=== PATIENT | female | born 1955 | race Caucasian/White ===

== ENCOUNTER 2018-05-01 11:48 | Emergency (ER) | payer SELFPAY ==
--- NOTE | 2018-05-01 15:17 | RAD REPORT ---
EXAM DESCRIPTION: RAD - Tib Fib Left - 05/01/2018 2:50 pm CLINICAL HISTORY: fall, leg pain COMPARISON: No comparisons FINDINGS: No evidence of fracture or dislocation.
--- NOTE | 2018-05-01 15:19 | RAD REPORT ---
EXAM DESCRIPTION: RAD - Knee Left 3 View - 05/01/2018 2:50 pm CLINICAL HISTORY: pain post-fall COMPARISON: No comparisons FINDINGS: No acute fracture or dislocation is seen. A small suprapatellar joint effusion is present.
--- NOTE | 2018-05-01 15:36 | EDPHYS ---
Physician Documentation [facility] Name: Shantal Real Age: 63 yrs Sex: Female : 1955 Arrival Date: 05/01/2018 Time: 11:51 Bed 10 Private MD: ED Physician Jag Bautista Historical: - Allergies: 05/01 12:25 No Known Allergies; aa5 - Home Meds: 12:25 None [Active]; aa5 - PMHx: 12:25 None; aa5 - PSHx: 12:25 Tubal ligation; aa5 - Immunization history:: Flu vaccine is up to date. - Social history:: Smoking status: Patient uses tobacco products, smokes one pack cigarettes per day. - Ebola Screening: : No symptoms or risks identified at this time. Vital Signs: 12:25 BP 165 / 72; Pulse 98; Resp 16 S; Temp 98.2(TE); Pulse Ox 97% on R/A; Weight 47.63 kg aa5 (R); Height 4 ft. 11 in. (149.86 cm) (R); Pain 8/10; 12:25 Body Mass Index 21.21 (47.63 kg, 149.86 cm) aa5 MDM: 14:16 Patient medically screened. [facility] 15:35 Data reviewed: vital signs, nurses notes. Counseling: I had a detailed discussion with ange the patient and/or guardian regarding: the historical points, exam findings, and any diagnostic results supporting the discharge/admit diagnosis, radiology results, the need for outpatient follow up, to return to the emergency department if symptoms worsen or persist or if there are any questions or concerns that arise at home. 05/01 12:26 Order name: Knee Left 3 View XRAY; Complete Time: 15:27 aa5 05/01 14:16 Order name: Tib Fib Left XRAY; Complete Time: 15:27 [facility] 05/01 15:28 Order name: Knee Immobilizer; Complete Time: 16:09 [facility] 05/01 15:47 Order name: Crutches; Complete Time: 16:09 [facility] Administered Medications: No medications were administered Disposition: 16:45 Co-signature as Attending Physician, Jag Bautista MD. rn Disposition: 05/01/18 15:36 Discharged to Home. Impression: Internal derangement of knee. - Condition is Stable. - Discharge Instructions: Knee Pain. - Prescriptions for Ultracet 37.5- 325 mg Oral Tablet - take 1 tablet by ORAL route every 6 hours - for up to 5 days; do not exceed 8 tablets per day.; 12 tablet. - Work release form, Medication Reconciliation Form, Thank You Letter, Antibiotic Education, Prescription Opioid Use form. - Follow up: Chandu Otoole MD; When: 2 - 3 days; Reason: Recheck today's complaints, Continuance of care, Re-evaluation by your physician. Addendum: 05/10/2018 20:25 Addendum: This is a 63 year old female with no chronic medical conditions that presents j mm to the ED with complaints of pain to her left knee after tripping. Patient denies other injury. ROS: Positive for extremity injury/pain otherwise negative. PE. Gen: NAD, Cardio: RRR, Resp: Non labored respirations, extremities: Left posterior and anterior knee ttp, full dorsalis pedis pulse, full ROM appreciated, compartments are soft, NVI. Neuro: Motor function normal. HEENT: Non traumatic, NECK: ROM normal. MDM. Negative xray. Injury appears more likely soft tissue, patient is given f/u with ortho and otheriwse given strict return precautions. patient understood and agrees with the plan of care. Diagnosis: Internal Derangement of the Left Knee.. Signatures: Dispatcher [employer] Saida Gustafson, RN RN dm5 Rfay Lockwood PA PA jmm Nieto, Roman, MD MD rn Calderon, Audri RN RN aa5 Corrections: (The following items were deleted from the chart) 05/01 16:11 15:36 05/01/2018 15:36 Discharged to Home. Impression: Internal derangement of knee. dm5 Condition is Stable. Forms are Medication Reconciliation Form, Thank You Letter, Antibiotic Education, Prescription Opioid Use. Follow up: Chandu Otoole; When: 2 - 3 days; Reason: Recheck today's complaints, Continuance of care, Re-evaluation by your physician. ange
--- NOTE | 2018-05-01 15:36 | ER ---
Nurse's Notes [facility] Name: Shantal Real Age: 63 yrs Sex: Female : 1955 Arrival Date: 05/01/2018 Time: 11:51 Bed 10 Private MD: Diagnosis: Internal derangement of knee Presentation: 05/01 12:24 Presenting complaint: Patient states: "I was at work and I tripped with a rug and fell aa5 to my knees". Pt c/o pain to left knee. Transition of care: patient was not received from another setting of care. Onset of symptoms was April 2018. Risk Assessment: Do you want to hurt yourself or someone else? Patient reports no desire to harm self or others. Initial Sepsis Screen: Does the patient meet any 2 criteria? No. Patient's initial sepsis screen is negative. Does the patient have a suspected source of infection? No. Patient's initial sepsis screen is negative. Care prior to arrival: None. 12:24 Method Of Arrival: Ambulatory aa5 12:24 Acuity: ELIZA 4 aa5 Historical: - Allergies: 12:25 No Known Allergies; aa5 - Home Meds: 12:25 None [Active]; aa5 - PMHx: 12:25 None; aa5 - PSHx: 12:25 Tubal ligation; aa5 - Immunization history:: Flu vaccine is up to date. - Social history:: Smoking status: Patient uses tobacco products, smokes one pack cigarettes per day. - Ebola Screening: : No symptoms or risks identified at this time. Screenin:00 Abuse screen: Denies threats or abuse. Nutritional screening: No deficits noted. aa5 Tuberculosis screening: No symptoms or risk factors identified. Fall Risk None identified. Assessment: 14:00 General: Appears comfortable, Behavior is calm, cooperative. Pain: Complains of pain in aa5 left knee. Neuro: Level of Consciousness is awake, alert, obeys commands, Oriented to person, place, time, situation. Cardiovascular: Patient's skin is warm and dry. Respiratory: Airway is patent Respiratory effort is even, unlabored, Respiratory pattern is regular, symmetrical. GI: No signs and/or symptoms were reported involving the gastrointestinal system. : No signs and/or symptoms were reported regarding the genitourinary system. EENT: No signs and/or symptoms were reported regarding the EENT system. Derm: Skin is pink, warm \\T\\ dry. Musculoskeletal: Reports pain in left knee. 16:10 Reassessment: Patient is alert, oriented x 3, equal unlabored respirations, skin aa5 warm/dry/pink. Knee immobilizer applied to left knee and crutches given to pt. . Vital Signs: 12:25 BP 165 / 72; Pulse 98; Resp 16 S; Temp 98.2(TE); Pulse Ox 97% on R/A; Weight 47.63 kg aa5 (R); Height 4 ft. 11 in. (149.86 cm) (R); Pain 8/10; 12:25 Body Mass Index 21.21 (47.63 kg, 149.86 cm) aa5 ED Course: 11:51 Patient arrived in ED. rg4 12:25 Triage completed. aa5 12:25 Arm band placed on. aa5 12:25 Patient has correct armband on for positive identification. aa5 14:00 Rebecca Bhat, GURWINDER is Primary Nurse. aa5 14:00 Rafy Lockwood PA is PHCP. [facility] 14:00 Jag Bautista MD is Attending Physician. m 14:19 Warm blanket given. Pillow given. Patient remains in wheelchair. Ice pack to injury. jp3 14:41 X-ray completed. Portable x-ray completed in exam room. Patient tolerated procedure la2 well. 14:50 Knee Left 3 View XRAY In Process Unspecified. EDMS 14:51 Tib Fib Left XRAY In Process Unspecified. EDMS 15:36 Chandu Otoole MD is Referral Physician. [facility] 16:11 No provider procedures requiring assistance completed. Patient did not have IV access aa5 during this emergency room visit. Administered Medications: No medications were administered Outcome: 15:36 Discharge ordered by . [facility] 16:10 Discharged to home via wheelchair, with family. aa5 16:10 Condition: stable 16:10 Discharge instructions given to patient, Instructed on discharge instructions, follow up and referral plans. medication usage, Demonstrated understanding of instructions, follow-up care, medications, Prescriptions given X 1. 16:11 Patient left the ED. dm5 Signatures: Dispatcher [employer] EDDE Saida Barnett, GURWINDER RN dm5 MickaRafy hernández PA PA jmm Calderon, Audri, RN RN aa5 Marissa Floyd RN RN tw2 Mari Osuna4 Ambar Fuentes2 Kevin Mora jp3 Corrections: (The following items were deleted from the chart) 19:49 14:48 Reassessment: pt assisted onto bedpan at this time, pt urinated out of bedpan aa5 onto personal gown, pt cleaned, placed in new gown, lorraine is not completely under pt at this time but pt states "its fine, im not wet now" tw2
== END 2018-05-01 16:11 | disposition home or self-care (01) ==
LOC: ER 11:48
DX: M23.92 Unspecified internal derangement of left knee (principal); F17.210 Nicotine dependence, cigarettes, uncomplicated
CPT/HCPCS: 99283

== ENCOUNTER 2022-09-22 07:53 | Day surgery (SDC) | payer OTHER ==
[2022-09-22 08:19] VITALS: BMI 21.1
[2022-09-22] MEDS ORDERED: ALBUMIN HUMAN 25% 300 ML IV ONE (10:30)
[2022-09-22 12:33] VITALS: BP 134/76; TEMP 98.6; O2SAT 92
--- NOTE | 2022-09-22 12:50 | RAD REPORT ---
EXAM DESCRIPTION: US - Paracentesis Proc Guidance - 09/22/2022 9:36 am CLINICAL HISTORY: ASCITES Ascites COMPARISON: No comparisons FINDINGS: Informed consent was obtained and time-out was performed. Patient's abdomen was prepped and draped in the usual sterile fashion. 1% lidocaine was used for loca l anesthetic purposes. A small skin incision was made. A paracentesis catheter was guided into the peroneal cavity under son ographic guidance. A small amount of fluid was sent for requested lab studies. A large volume paracentesis was performed , with a total of 3.8 liters drained. The patient tolerated the procedure well. Patient was administered IV albumin per protocol following the procedure. IMPRESSION: Successful ultrasound-guided paracentesis.
[2022-09-22 13:38] LABS: Appearance CLEAR (CLEAR); Body Fluid Source PERITONEAL; Body Fluid WBC 129 /mm^3; Color of fluid Yellow (COLORLESS)
[2022-09-24 20:13] LABS: TOTAL PROTEIN,PERITONEAL FLUID <3.0 g/dL
== END 2022-09-22 11:30 | disposition home or self-care (01) ==
LOC: DS 07:53
PROVIDERS: ATTEND Internal Medicine Gastroenterology
DX: R18.8 Other ascites (principal); K74.69 Other cirrhosis of liver
CPT/HCPCS: 87070; 36415; 82150; 89050; 84157; 82042; 96365; 49083; P9047

== ENCOUNTER 2022-09-30 23:10 | Observation (INO) | payer OTHER ==
--- OUTSIDE RECORDS SUMMARY | 2022-09-30 23:15 | XMS REPORT | Continuity of Care Document ---
:1955 Author Organization [facility] t Address [address] [place] [address] [place] [id number] Care Team Providers Name Role Phone Sam Proctor Primary Care Physician Sam Proctor Attending Clinician Unavailable Nixon Lorenzo Attending Clinician Unavailable Elizabeth Nielsen RN Attending Clinician Unavailable Sam Proctor Attending Clinician Any Hoover RN Attending Clinician Unavailable AVERY NARAYANAN Attending Clinician Unavailable Robel Perez DO Attending Clinician Marcus Guaman MD Attending Clinician Avery Narayanan MD Attending Clinician Gustavo Proctor Admitting Clinician Unavailable AVERY NARAYANAN Admitting Clinician Unavailable vAery Narayanan MD Admitting Clinician Payers Payer Name Policy Type Policy Number Effective Date Expiration Date S ource Problems Condition Condition Condition Status Onset Resolution Last Treating Co mments Source Name Details Category Date Date Treatment Clinician Date Paresthesi Paresthesi Disease Active U nivers as as 4-12 ity of 00:00: [place] 00 Medical Branch Allergies, Adverse Reactions, Alerts Allergy Allergy Status Severity Reaction(s) Onset Inactive Treating Comm ents Source Name Type Date Date Clinician No Known DA Active U [facility] Allergie 8-11 Clear s 00:00: Puentes 00 [facility] NO KNOWN Drug Active Univers ALLERGIE Class ity of S [place] [facility] Social History Social Habit Start Date Stop Date Quantity Comments Source History SDOH Social Unive rsity of Connections Get [place] Med ical Together Branch History SDOH Social Unive rsity of Connections Druze [place] [facility] History SDOH Social Unive rsity of Connections [place] [facility] Membership Branch History SDOH Social Unive rsity of Connections [place] [facility] Meetings Branch History of tobacco Cigarette Smoker University of use [facility] Branch Exposure to 2022-05-18 2022-05-28 Not sure University of SARS-CoV-2 (event) 00:00:00 09:16:00 [place] [facility] History SDOH 2022-05-28 2022-05-28 3 University o f Alcohol Frequency 00:00:00 00:00:00 [place] M edical Branch History SDOH 2022-05-28 2022-05-28 2 University o f Alcohol Std Drinks 00:00:00 00:00:00 [place] [facility] History SDOH 2022-05-28 2022-05-28 1 University o f Alcohol Binge 00:00:00 00:00:00 [place] Medic al Branch History SDOH Social 2022-05-28 2022-05-28 5 Unive rsity of Connections Phone 00:00:00 00:00:00 [place] M edical Branch History SDOH Social 2022-05-28 2022-05-28 4 Unive rsity of Connections Living 00:00:00 00:00:00 [place] [facility] History SDOH 2022-05-28 2022-05-28 0 University o f Physical Activity 00:00:00 00:00:00 [place] M edical DPW Branch History SDOH 2022-05-28 2022-05-28 0 University o f Physical Activity 00:00:00 00:00:00 [place] M edical MPS Branch History SDOH 2022-05-28 2022-05-28 5 University o f Financial 00:00:00 00:00:00 [place] [facility] History SDOH Food 2022-05-28 2022-05-28 1 Univers ity of Worry 00:00:00 00:00:00 [place] [facility] History SDOH Food 2022-05-28 2022-05-28 1 Univers ity of Scarcity 00:00:00 00:00:00 [place] [facility] History SDOH 2022-05-28 2022-05-28 2 University o f Transport Med 00:00:00 00:00:00 [place] Medic al Branch History SDSC 2022-05-28 2022-05-28 2 University o f Transport Non-Med 00:00:00 00:00:00 [place] M edical Branch History SDOH 2022-05-28 2022-05-28 2 University o f Housing Unable to 00:00:00 00:00:00 [place] M edical Pay Branch History [facility] 2022-05-28 2022-05-28 1 University o f Housing Places 00:00:00 00:00:00 [place] Medi shireen Lived Branch History [facility] 2022-05-28 2022-05-28 2 University o f Housing Homeless 00:00:00 00:00:00 [place] Me dical Last Year Branch Tobacco use and 2022-05-28 2022-05-28 Smokeless Universit y of exposure 00:00:00 00:00:00 tobacco non-user [place] Me dical Branch Sex [birth year] GRU[place] Molina 00:00:00 00:00:00 [facility] Smoking Status Start Date Stop Date Source Smokes tobacco daily 2022-05-28 00:00:00 Univers ity of [place] [facility] Medications Ordered Filled Start Stop Current Ordering Indication Dosage Frequency Signature Comments Components Source Medication Medication Date Date Medication? Clinician (SIG) Name Name Methylpredn 2022- No 4mg [Order 1 U lucilleers isolone 05-30 Start] ity of (MEDROL) 21:35: 21:44 Name: [place] tablet 4 mg 52 :00 Methylpred Me dical nisolone Branch (MEDROL) tablet 4 mg Signed Summary: 4 mg, Oral, Q6H TAPER, 4 doses, First dose on Thu05/30/22 at 1645, Last dose on Thu05/31/22 at 1045, Routine [Order 1 End] [Order 2 Start] Name: Methylpred nisolone (MEDROL) tablet 4 mg Signed Summary: 4 mg, Oral, Q8H TAPER, 3 doses, First dose on 05/31/22 at 1845, Last dose on 06/01/22 at 1045, Routine [Order 2 End] methylPREDN 2023-0 Yes [id number] Take by Univers ISolone 4 4-14 mouth ity of mg tablets 00:00: [place]STRU [place] CTIONS. Medical follow Branch package directions methylPREDN 2023-0 Yes [id number] Take by Univers ISolone 4 4-14 mouth ity of mg tablets 00:00: [place]INSTRU [place] 00 CTIONS. Medical follow Branch package directions methylPREDN 2023-0 Yes [id number] Take by Univers ISolone 4 4-14 mouth ity of mg tablets 00:00: [place]-INSTRU [place] 00 CTIONS. Medical follow Branch package directions methylPREDN 2023-0 Yes [id number] Take by Univers ISolone 4 4-14 mouth ity of mg tablets 00:00: [place]-INSTRU [place] 00 CTIONS. Medical follow Branch package directions methylPREDN 2023-0 Yes [id number] Take by Univers ISolone 4 4-14 mouth ity of mg tablets 00:00: [place]-INSTRU [place] 00 CTIONS. Medical follow Branch package directions methylPREDN 2023-0 Yes [id number] Take by Univers ISolone 4 4-14 mouth ity of mg tablets 00:00: [place]-INSTRU [place] 00 CTIONS. Medical follow Branch package directions methylPREDN 2023-0 Yes [id number] Take by Univers ISolone 4 4-14 mouth ity of mg tablets 00:00: [place]-INSTRU [place] 00 CTIONS. Medical follow Branch package directions gabapentin 2023-0 2023- No [id number] 100mg Take 1 Univers 100 mg 4-14 05-15 capsule by ity of capsule 00:00: 04:59 mouth in [place] 00 :00 the Medical morning Branch and 1 capsule at noon and 1 capsule in the evening. Do all this for 30 days. gabapentin 2023-0 2023- No [id number] 100mg Take 1 Univers 100 mg 4-14 05-15 capsule by ity of capsule 00:00: 04:59 mouth in [place] 00 :00 the Medical morning Branch and 1 capsule at noon and 1 capsule in the evening. Do all this for 30 days. gabapentin 2022-0 2022- No [id number] 100mg Take 1 Univers 100 mg 05-30-15 capsule by ity of capsule 00:00: 04:59 mouth in [place] 00 :00 the and 1 capsule at noon and 1 capsule in the evening. Do all this for 30 days. gadobenate 0 2022- No [id number] .2mL/kg 8.62 mL Univers dimeglumine 05-2913 (0.2 mL/kg i ty of (MULTIHANCE 16:00: 16:00 ?43.1 kg), [place] -10 mL) 00 :00 Intravenou Medica l injection s, ONCE, 1 Bran ch 8.62 mL dose, On Thu05/29/22 at 1100, Routine gabapentin Yes 100mg 100 mg, Uni vers (NEURONTIN) 05-29 Oral, TID, it y of capsule 100 01:00: First dose [place] mg 00 on Thu05/28/22 at Branch 2000, Until Discontinu ed, Routine enoxaparin 0 Yes 40mg 40 mg, Unive rs (LOVENOX) 05-28 Subcutaneo ity of injection 22:00: [place]ILY, [place] 40 mg 00 First dose Medical on Thu05/28/22 at 1700, Until Discontinu ed, Routine sennosides- 0 Yes 1{tbl} 1 tablet, Univers docusate 12 Oral, ity of sodium 21:29: QDAILYPRNDee (SENOKOT-S) 51 Starting Medi shireen 8.6-50 mg on Thu per tablet 05/28/22 at 1 tablet 1629, Until Discontinu ed, Routine, Constipati on guaiFENesin 0 Yes 200mg 200 mg, Un lotus (FENESIN 4-12 Oral, ity of IR) tablet 21:29: Q4HPRN, [place] 200 mg 51 Starting Medical on Thu05/28/22 at 1629, Until Discontinu ed, Routine, Cough ondansetron 0 Yes 4mg 4 mg, Slow Univers (ZOFRAN 4-12 IV Push, ity of (PF)) 21:29: Q6HPRN, [place] injection 4 51 Starting Medi shireen mg on Thu Branch 05/28/22 at 1629, Until Discontinu ed, Routine, Nausea and Vomiting (N/V) HYDROcodone 2022- No 1{tbl} 1 tablet, Univers -acetaminop 05-28 Oral, ity of hen (NORCO 21:29: 21:28 Q6HPRN, [place] as 5) 5-325 mg 51 :51 Starting Medi shireen tablet 1 on Thu Branch tablet 05/28/22 at 1629, Until Thu05/30/22 at 1628, Routine, Pain (scale 4-6) acetaminoph Yes 650mg 650 mg, Un lotus en 05-28 Oral, ity of (TYLENOL) 21:29: Q6HPRN, [place] tablet 650 50 Starting Medic al mg on Thu Branch 05/28/22 at 1629, Until Discontinu ed, Routine, Pain (scale 1-3) methylpredn 2022- No 125mg 125 mg, U nivers isolone sod 05-28 Intravenou i ty of succ 17:00: 21:36 s, Q6H, [place] (SOLU-MEDRO 00 :57 First dose Me dical L) on Thu Branch injection 05/28/22 at 125 mg 1200, Until Discontinu ed, Routine NaCl 0.9% No 500mL at 999 Univ ers (NS) bolus 05-28 mL/hr, 500 it y of infusion 14:30: 17:30 mL, IV [place] 500 mL 00 :00 Infusion, Medical ONCE, 1 Branch dose, On Thu05/28/22 at 0930, STAT Vital Signs Vital Name Observation Time Observation Value Comments Source Systolic blood 2022-05-30 16:32:00 132 mm[Hg] Univer sity of pressure [facility] Diastolic blood 2022-05-30 16:32:00 72 mm[Hg] Unive rsity of [facility] Heart rate 2022-05-30 16:32:00 82 /min Universi ty [facility] Body temperature 2022-05-30 16:32:00 36.44 Rocio Univ ersity [facility] Respiratory rate 2022-05-30 16:32:00 18 /min [facility] Oxygen saturation in 2022-05-30 16:32:00 95 /min [facility] Arterial blood by [facility] Pulse oximetry Branch Body weight 2022-05-30 08:43:[address] [facility] BMI 2022-05-30 08:43:00 20.92 kg/m2 [facility] Body height 2022-05-28 14:00:[address] [facility] Procedures Procedure Date / Time Performing Clinician Source Performed PHOSPHORUS 2022-05-30 09:01:00 Rowena [facility] MAGNESIUM 2022-05-30 09:01:00 [facility]OLIC PANEL 2022-05-30 09:01:00 Rowena [facility] (NA, K, CL, CO2, GLUCOSE, Medica l Branch BUN, CREATININE, CA) CBC WITH DIFF 2022-05-30 09:01:00 Rowena [facility] MR LUMBAR SPINE W WO 2022-05-29 16:13:00 Rowena [facility] CONTRAST [facility] MR CERVICAL SPINE W WO 2022-05-29 16:12:00 [facility] CT HEAD WO CONTRAST 2022-05-29 16:05:00 Avery Narayanan [facility] PHOSPHORUS 2022-05-29 08:18:00 Rowena [facility] MAGNESIUM 2022-05-29 08:18:00 [facility] 2022-05-29 08:18:00 [facility] BASIC METABOLIC PANEL 2022-05-29 08:18:00 Rowena [facility] (NA, K, CL, CO2, GLUCOSE, Medica l Branch BUN, CREATININE, CA) LIPID PANEL (26327)(TOTAL 2022-05-29 08:18:00 Marcus Guaman [facility] CHOLESTEROL, Medical Branch TRIGLYCERIDES, HDL) CBC WITH DIFF 2022-05-29 08:18:00 Rowena [facility] GLYCOSYLATED HEMOGLOBIN 2022-05-29 08:18:00 [facility] PHOSPHORUS 2022-05-29 01:01:00 [facility] MAGNESIUM 2022-05-29 01:01:00 Rowena [facility] FOLATE 2022-05-29 01:01:00 [facility] BASIC METABOLIC PANEL 2022-05-29 01:01:00 [facility] (NA, K, CL, CO2, GLUCOSE, Medica l Branch BUN, CREATININE, CA) URINALYSIS 2022-05-28 23:48:00 [facility] QFT TB2 MINUS NIL 2022-05-28 22:28:00 Singer [facility] SEDIMENTATION RATE 2022-05-28 22:28:00 Rowena [facility] CBC WITH DIFF 2022-05-28 22:28:00 [facility]IFERON-TB ASSAY 2022-05-28 22:28:00 Robel Perez [facility] CT THORAX WO CONTRAST 2022-05-28 22:13:50 [facility] V[facility] B12, LEVEL 2022-05-28 22:01:00 Rowena [facility] RHEUMATOID FACTOR 2022-05-28 22:01:00 [facility] C-REACTIVE PROTEIN 2022-05-28 22:01:00 [facility] FREE T4 2022-05-28 22:01:00 [facility] THYROID STIMULATING 2022-05-28 22:01:00 Rowena [facility] HORMONE [facility] ANTI-NUCLEAR ANTIBODY 2022-05-28 22:01:00 [facility] Branch ANTI-NUCLEAR ANTIBODY 2022-05-28 22:01:00 Rowena Marcus [facility] TITER Medical Branch VITAMIN D, 25-OH 2022-05-28 22:01:00 Rowena Marcus [facility] LAB ONLY COVID 2022-05-28 17:50:00 Singer [facility] INTERPRETATION [facility] Branch COVID-19 (ID NOW RAPID 2022-05-28 17:50:00 Singer [facility] TESTING) Medical Branch URINALYSIS 2022-05-28 15:48:00 Singer [facility] XR CHEST 1 VW 2022-05-28 15:04:15 Singer [facility] COMP. METABOLIC PANEL 2022-05-28 14:44:00 Singer [facility] ([id number]) Medical Branch CBC WITH DIFF 2022-05-28 14:44:00 Singer [facility] N-TERMINAL PRO-BNP 2022-05-28 14:44:00 Singer [facility] HOSPITAL ADMISSION 2022-05-28 05:01:00 Doctor Unassigned, [facility] Plan of Care Planned Activity Planned Date Details Comments Source Future Scheduled 2022-10-17 Influenza Vaccine (#1) [facility] 00:00:00 [code = Influenza Medical Ce nter Vaccine (#1)] Future Scheduled 2022-10-17 Influenza Vaccine (#1) [facility] 00:00:00 [code = Influenza Medical Ce nter Vaccine (#1)] Future Scheduled 2022-02-[address] [facility] 00:00:00 (12+) [code = Medical Center DEPRESSION SCREENING (12+)] Future Scheduled 2022-02-16 FALLS RISK SCREENING [facility] 00:00:00 [code = FALLS RISK Medical C enter SCREENING] Future Scheduled 2022-02-[address] [facility] 00:00:00 (12+) [code = Medical Center DEPRESSION SCREENING (12+)] Future Scheduled 2022-02-16 FALLS RISK SCREENING [facility] 00:00:00 [code = FALLS RISK Medical C enter SCREENING] Future Scheduled 2020-01-[address] [facility] 00:00:00 WELLNESS (YEAR 2 or Medical Center FIRST YEAR if no IPPE) [code = MEDICARE ANNUAL WELLNESS (YEAR 2 or FIRST YEAR if no IPPE)] Future Scheduled 2020-01-[address] [facility] 00:00:00 WELLNESS (YEAR 2 or Medical Center FIRST YEAR if no IPPE) [code = MEDICARE ANNUAL WELLNESS (YEAR 2 or FIRST YEAR if no IPPE)] Future Scheduled 2019 PNEUMOCOCCAL 65+ YRS ([address] [facility] 00:00:00 - PCV) [code = Medical Cente r PNEUMOCOCCAL 65+ YRS (1 - PCV)] Future Scheduled 2019 PNEUMOCOCCAL 65+ YRS ([address] [facility] 00:00:00 - PCV) [code = Medical Cente r PNEUMOCOCCAL 65+ YRS (1 - PCV)] Future Scheduled 2004-02-13 SHINGLES VACCINES ([address] [facility] 00:00:00 2) [code = SHINGLES Medical Center VACCINES (1 of 2)] Future Scheduled 2004-02-13 SHINGLES VACCINES ([address] [facility] 00:00:00 2) [code = SHINGLES Medical Center VACCINES (1 of 2)] Future Scheduled 1973 DTAP/TDAP/TD VACCINES [facility] 00:00:00 (1 - Tdap) [code = Medical C enter DTAP/TDAP/TD VACCINES (1 - Tdap)] Future Scheduled 1973 DTAP/TDAP/TD VACCINES [facility] 00:00:00 (1 - Tdap) [code = Medical C enter DTAP/TDAP/TD VACCINES (1 - Tdap)] Future Scheduled 1972-02-13 HEPATITIS C SCREENING [facility] 00:00:00 [code = HEPATITIS C Medical Center SCREENING] Future Scheduled 1972-02-13 HEPATITIS C SCREENING [facility] 00:00:00 [code = HEPATITIS C Medical Center SCREENING] Future Scheduled [address] [facility] 00:00:00 Counseling and Medical Cente r Screening (12+) [code = Tobacco Cessation Counseling and Screening (12+)] Future Scheduled [address] [facility] 00:00:00 Counseling and Medical [facility] Screening (12+) [code = Tobacco Cessation Counseling and Screening (12+)] Future Scheduled 1955 COVID-19 VACCINE (#1) [facility] 00:00:00 [code = COVID-[address] VACCINE (#1)] Future Scheduled 1955 COVID-19 VACCINE (#1) [facility] 00:00:00 [code = COVID-[address] VACCINE (#1)] Future Scheduled 1954 Screening for malignant [facility] 00:00:00 neoplasm of colon Medical Ce nter (procedure) [code = 809115310] Future Scheduled 1954 Screening for malignant [facility] 00:00:00 neoplasm of colon Medical Ce nter (procedure) [code = 334741485] Future Scheduled 1955 Sigmoidoscopy [code = [facility]:00 Sigmoidoscopy] [facility] Future Scheduled 1954 Screening for malignant [facility] 00:00:00 neoplasm of breast Medical C enter (procedure) [code = 423815493] Future Scheduled 1955 Sigmoidoscopy [code = [facility] 00:00:00 Sigmoidoscopy] [facility] Future Scheduled 1954 CT Colonography (combo) [facility] 00:00:00 [code = CT Colonography [facility] (combo)] Future Scheduled 1954 Screening for malignant [facility] 00:00:00 neoplasm of colon Medical Ce nter (procedure) [code = 946335290] Future Scheduled 1954 Screening for malignant [facility] Test 00:00:00 neoplasm of colon Medical Ce nter (procedure) [code = 064028814] Future Scheduled 1955 DXA SCAN [code = DXA [facility] 00:00:00 SCAN] [facility] Future Scheduled 1954 Screening for malignant [facility] Test 00:00:00 neoplasm of colon Medical Ce nter (procedure) [code = 594538076] Future Scheduled 1954 Screening for malignant [facility] Test 00:00:00 neoplasm of breast Medical C enter (procedure) [code = 541272946] Future Scheduled 1954 CT Colonography (combo) [facility] Test 00:00:00 [code = CT Colonography [facility] (combo)] Future Scheduled 1954 Screening for malignant [facility] Test 00:00:00 neoplasm of colon Medical Ce nter (procedure) [code = 573155837] Future Scheduled 1954 Screening for malignant [facility] Test 00:00:00 neoplasm of colon Medical Ce nter (procedure) [code = 442474434] Future Scheduled 1954 DXA SCAN [code = DXA [facility] Test 00:00:00 SCAN] [facility] Future Scheduled 1954 Screening for malignant [facility] Test 00:00:00 neoplasm of colon Medical Ce nter (procedure) [code = 063085353] Encounters Start End Encounter Admission Attending Care Care Encounter Source Date/Time Date/Time Type Type Clinicians Facility Department ID 2022-07-17 Outpatient Proctor, [facility] [id number] Common 16:18:00 Sam [id number] [facility] 2022-06-05 Outpatient Proctor, STLMLC [facility] [id number] Common 10:23:03 Sam [id number] [facility] 2022-06-03 Outpatient Proctor, STLMLC [facility] [id number] Common 14:46:03 Sam [id number] [facility] 2022-09-30 2022-09-30 [id number] [facility] 05:34:00 05:34:00 Nixon 62 [facility] 2022-09-26 2022-09-26 [id number] [facility] 2022-09-26 2022-09-26 Documenttanvi Nielsen [facility] [id number] 00:[facility]00 00:00:00 cali Johnson [facility] 2022-07-10 2022-07-10 Telephone Proctor, UNIVERSIT [id number] Univers 00:00:00 00:00:00 [facility] Y HEALTH [id number] ity of CLINICS 4[place]2.[place] [id number] [address] Branch 2022-07-07 2022-07-07 Letter [facility] [id number] Univers 00:00:00 00:00:00 (Out) [facility] Y HEALTH [id number] ity of [place] [id number] [address] 2022-07-02 2022-07-02 Letter [facility] [id number] Univers 00:00:00 00:00:00 (Out) Sam M Y HEALTH [id number] ity of [place]2.[place] [id number] [address] 2022-06-25 2022-06-25 Letter [facility] [id number] Univers 00:00:00 00:00:00 (Out) [facility] HEALTH [id number] ity of [place] 4[place]2.[place] [id number] [address] 2022-06-02 2022-06-02 Transition ALBA Hoover [id number] Univers 00:00:00 00:00:00 of Care Any REYESY 350.1.13.10 it y of [place]2.[place].2.[place] [id number] [place] [address] Branch 2022-05-28 2022-05-30 [facility] [id number] Univers 09:01:00 17:30:00 AVERY lomeli [facility] 2022-05-28 2022-05-30 Inpatient U ORACIONEW [facility] [id number] Univers 09:01:00 17:30:00 AVERY lomeli [facility] 2022-05-28 2022-05-30 [facility] Robel Perez [facility] [id number] Univers 09:01:00 17:30:00 Encounter Marcus Guaman [id number] ity of OracioKellenovidiodrakeanthony ARNALDO 4.2.7.2.686 [place] [id number] ([facility]) Results Test Description Test Time Test Comments Results Result Comments Source - XR CHEST 2 V 2022-09-27 00:00:00 [facility] 1955 Sex: F FAX: Gustavo Cummins MD [phone] [place]: St: PRE FAX: Nixon Garcia MD [phone] Name: HUMBERTO,ASIF [facility] : 1955 Age/S: 67/F [address] [place] [address] Unit #: [id number] Loc: H[place] [address] Phys: Nixon Lorenzo MD Acct: [id number] Dis Date: Status: PRE [facility] PHONE #: [phone] Exam Date: 09/26/2022 173 FAX #: [phone] Reason: PREOP EXAMS: CPT CODE: [id number] XR CHEST 2 V [id number] PROCEDURE INFORMATION: Exam: XR Chest Exam date and time: 09/26/2022 4:57 PM Age: 67 years old Clinical indication: Pre-operative exam; Cardiovascular screening and respiratory screening exam; Additional info: Preop TECHNIQUE: Imaging protocol: Radiologic exam of the chest. Views: 2 views. PA and Lateral COMPARISON: No relevant prior studies available. FINDINGS: Lungs: There is mild biapical scarring. No confuent reticular opacities. No consolidation. Pleural spaces: No pleural effusion. No pneumothorax. Heart/Mediastinum: Within normal limits. Bones/joints: Unremarkable as visualized. IMPRESSION: No acute process. at 0718 Reported and signed by: Melvin Gupta D.O. CC: Gustavo Proctor MD; Nixon Lorenzo MD Technologist: RT Bethany(Jessica) Trnscrd Date/Time/By: 09/27/2022 (717) : By: AliceGGG Orig Print D/T: S: 09/27/2022 (717) PAGE 1 Signed Report CBC W/AUTO DIFF 2022-09-26 17:04:00 Test Item Value Reference Range Interpretation Comme nts WHITE BLOOD CELL (test code = WBC) 10.8 x10 3/uL 4.5-11.0 N RED BLOOD CELL (test code = RBC) 4.53 x10 6/uL 3.54-5.02 N HEMOGLOBIN (test code = HGB) 14.3 g/dL 11.0-15.0 N HEMATOCRIT (test code = HCT) 44.8 % 33.0-45.0 N MEAN CELL VOLUME (test code = MCV) 98.9 fL 81.0-99.0 N MEAN CELL HGB (test code = MCH) 31.6 pg 27.0-33.0 N MEAN CELL HGB CONCETRATION (test code = MCHC) 31.9 g/dL 33.0-37. 0 L RED CELL DISTRIBUTION WIDTH CV (test code = RDW) 14.3 % 11.5- 14.5 N RED CELL DISTRIBUTION WIDTH SD (test code = RDW-SD) 52.4 fL 37 .0-54.0 N PLATELET COUNT (test code = PLT) 177 x10 3/uL 150-400 N MEAN PLATELET VOLUME (test code = MPV) 10.6 fL 7.0-9.0 H NEUTROPHIL % (test code = NT%) 56.5 % 56.0-77.0 N IMMATURE GRANULOCYTE % (test code = IG%) 0.4 % 0.0-2.0 N LYMPHOCYTE % (test code = LY%) 25.5 % 14.0-32.0 N MONOCYTE % (test code = MO%) 12.3 % 4.8-9.0 H EOSINOPHIL % (test code = EO%) 4.3 % 0.3-3.7 H BASOPHIL % (test code = BA%) 1.0 % 0.0-2.0 N NUCLEATED RBC % (test code = NRBC%) 0.0 % 0-0 N NEUTROPHIL # (test code = NT#) 6.11 x10 3/uL 2.0-7.6 N IMMATURE GRANULOCYTE # (test code = IG#) 0.04 x10 3/uL 0.00-0.03 H LYMPHOCYTE # (test code = LY#) 2.75 x10 3/uL 1.0-3.8 N MONOCYTE # (test code = MO#) 1.33 x10 3/uL 0.1-0.8 H EOSINOPHIL # (test code = EO#) 0.46 x10 3/uL 0.0-0.2 H BASOPHIL # (test code = BA#) 0.11 x10 3/uL 0.0-0.2 N NUCLEATED RBC # (test code = NRBC#) 0.00 x10 3/uL 0.0-0.1 N MANUAL DIFF REQUIRED (test code = MDIFF) NO PROTHROMBIN [id number] 17:03:00 Test Item Value Reference Range Interpretation Comments PROTHROMBIN TIME 12.3 SECONDS 9.3-12.9 N PATIENT (test code = PTP) INTERNATIONAL NORMAL 1.1 0.8-1.2 N TARGET INR BY RATIO (test code = INDICATIO N Indication INR) INR1. Prophylax is of venous thrombos is 2.0 - 3.0 (orthoped ic surgery), Proph ylaxis of venous throm bosis (other than hig h-risk surgery), Treat ment of Deep Vein Thrombosis/Pulm onary Embolism, Preve ntion of systemic emb olism - Tissue heart va lves, Acute Myocardia l Infarction (to prevent systemic emboli sm), Valvular heart disease, Atrial Fibrillation, Bileaflet mecha nical valve in aortic position.2. Mec hanical prosthetic valv es (high risk), 2. 5 - 3.5 Presence of Teresa pus Anticoagulant o r Antiphospholipi d Antibodies, Pre vention of systemic emb olism - Acute Myocardia l Infarction (to prevent recurrent infar ct). BASIC METABOLIC [id number] 17:00:00 Test Item Value Reference Range Interpretation Comments SODIUM (test code = 141 mEq/L 134-147 N NA) POTASSIUM (test code 4.0 mEq/L 3.4-5.0 N = K) CHLORIDE (test code 104 mEq/L 100-108 N = CL) CARBON DIOXIDE (test 30 mEq/l 21-33 N code = CO2) ANION GAP (test code 11 0-20 N = GAP) GLUCOSE (test code = 75 mg/dL 70-110 N GLU) BLOOD UREA NITROGEN 14 mg/dL 7-18 N (test code = BUN) GLOMERULAR 94.2 80-90 H The Glomerular FILTRATION RATE Filtration R ate is a (test code = GFR) calculated parameterbased on serum Creatinine, pat ient age and sex. GFR va luesless than 60 mL/min/ 1.73 square meters a re indicative ofCh ronic Kidney Disease. Values less than 15 mL/min/1.73squa re meters indicate Kidney failure. The calculation forGFR is based on the CKD-EPI (2020) calculat ion. This formulais race indifferent and is the recommended for louisa for GFRby the [facility] on for Adults.The GFR will not calculate if th e sex is unknown or if thepatient's ag e is <18 years. CREATININE (test 0.7 mg/dL 0.6-1.3 N code = CREAT) CALCIUM (test code = 8.4 mg/dL 8.0-10.5 N CA) N-TERMINAL [id number] 15:33:43 Test Item Value Reference Range Interpretation Comments NT-proBNP (test code = 746 pg/mL <=125 H 4364525224) BRIAN (test code = BRIAN) Biotin has been reported to cause a negative bias, interpret results relative to patient's use of biotin. Lab Interpretation (test Abnormal code = 82115-8) [facility]. METABOLIC PANEL ([id number])2022-05-28 15:26:24 Test Item Value Reference Range Interpretation Comments NA (test code = 134 mmol/L 135-145 L 8869358211) K (test code = 4.7 mmol/L 3.5-5.0 3095045871) CL (test code = 104 mmol/L 98-108 4250658098) CO2 TOTAL (test code = 24 mmol/L 23-31 3037235381) AGAP (test code = 6 2-16 4944308899) BUN (test code = 11 mg/dL 7-23 0842226622) GLUCOSE (test code = 124 mg/dL 70-110 H 6546779315) CREATININE (test code = 0.49 mg/dL 0.50-1.04 L 3348752326) TOTAL BILI (test code = 1.5 mg/dL 0.1-1.1 H 8210676392) CALCIUM (test code = 8.2 mg/dL 8.6-10.6 L 0307418837) T PROTEIN (test code = 7.3 g/dL 6.3-8.2 1425724229) ALBUMIN (test code = 3.2 g/dL 3.5-5.0 L 0239333322) ALK PHOS (test code = 102 U/L 34-122 1752848019) ALTv (test code = 77 U/L 5-35 H 1742-6) AST(SGOT) (test code = 123 U/L 13-40 H 1592232836) eGFR (test code = 125.6 mL/min/1.73m2 5441699628) BRIAN (test code = BRIAN) Association of Glomerular Filtration Rate (GFR) and Staging of Kidney Disease* + --+ --+ ------+| GFR (mL/min/1.73 m2) ?| With Kidney Damage ?| ?Without Kidney Damage+ --------+ --------+ +| ?>90 ?| ?Stage one ?| ? Normal ?+ ---+ ---+ -------+| ?60-89 ?| ?Stage two ?| ? Decreased GFR ? + --+ --+ ------+| ?30-59 ?| ?Stage three ?| ? Stage three ? + --+ --+ ------+| ?15-29 ?| ?Stage four ? | ? Stage four ?+ ---+ ---+ -------+| ?<15 (or dialysis) ? ?| ?Stage five ? | ? Stage five ?+ ---+ ---+ -------+ *Each stage assumes the associated GFR level has been in effect for at least three months. ?Stages 1 to 5, with or without kidney disease, indicate chronic kidney disease. Notes: Determination of stages one and two (with eGFR >59mL/min/1.73 m2) requires estimation of kidney damage for at least three months as defined by structural or functional abnormalities of the kidney, manifested by either:Pathological abnormalities or Markers of kidney damage (including abnormalities in the composition of the blood or urine or abnormalities in imaging tests). Lab Interpretation Abnormal (test code = 27030-5) [facility] WITH [id number] 15:14:03 Test Item Value Reference Range Interpretation Comments WBC (test code = 11.30 See_Comment H [Automated 6690-2) message] The sy stem which generated this result transmitted reference range : 4.30 - 11.10 10*3/?L. The reference range was not used to interpret this result as normal/abnormal . RBC (test code = 4.59 See_Comment [Automated 709-8) message] The sy stem which generated this result transmitted reference range : 3.93 - 5.25 10*6/?L. The reference range was not used to interpret this result as normal/abnormal . HGB (test code = 14.7 g/dL 11.6-15.0 718-7) HCT (test code = 43.5 % 35.7-45.2 4544-3) MCV (test code = 94.8 fL 80.6-95.5 787-2) MCH (test code = 32.0 pg 25.9-32.8 785-6) MCHC (test code = 33.8 g/dL 31.6-35.1 786-4) RDW-SD (test code = 49.5 fL 39.0-49.9 45909-4) RDW-CV (test code = 14.4 % 12.0-15.5 788-0) PLT (test code = 157 See_Comment L [Automated 777-3) message] The sy stem which generated this result transmitted reference range : 166 - 358 10*3/ ?L. The reference r gonzalo was not used to interpret this result as normal/abnormal . MPV (test code = 10.9 fL 9.5-12.9 93846-9) NRBC/100 WBC (test 0.0 See_Comment [Automat ed code = 1167440777) message] The system which generated this result transmitted reference range : 0.0 - 10.0 /100 WBCs. The refer ence range was not u sed to interpret th is result as normal/abnormal . NRBC x10^3 (test code See_Comment [Auto mated = 3083469117) message] The s ystem which generated this result transmitted reference range : 10*3/?L. The reference range was not used to interpret this result as normal/abnormal . GRAN MAT (NEUT) % 63.2 % (test code = 770-8) IMM GRAN % (test code 0.40 % = 1423543862) LYMPH % (test code = 23.2 % 736-9) MONO % (test code = 9.9 % 5905-5) EOS % (test code = 2.3 % 713-8) BASO % (test code = 1.0 % 706-2) GRAN MAT x10^3(ANC) 7.15 10*3/uL 1.88-7.09 H (test code = 2472681700) IMM GRAN x10^3 (test 0.04 10*3/uL 0.00-0.06 code = 5313539694) LYMPH x10^3 (test code 2.62 10*3/uL 1.32-3.29 = 731-0) MONO x10^3 (test code 1.12 10*3/uL 0.33-0.92 H = 742-7) EOS x10^3 (test code = 0.26 10*3/uL 0.03-0.39 711-2) BASO x10^3 (test code 0.11 10*3/uL 0.01-0.07 H = 704-7) Lab Interpretation Abnormal (test code = 16671-4) [facility] Notes Date/Time Note Provider Source 2022-09-26 16:13:00-00:00 [id number] [address] PATIENT NAME: ASIF PAUL ADMIT DATE: ACCOUNT NO: [id number] ROOM NO: AGE: 67 REPORT TYPE: eELECTROCARDIOGRAM REPORT SEX: F ADMITTING PHYSICIAN: ATTENDING PHYSICIAN:Nixon Lorenzo MD Order: [id number] Test Reason : PREOP Test Date/Time Stamp: ThuSep 26 2022 16:13:49 Blood Pressure : / mmHG Vent. Rate : 088 BPM Atrial Rate : 088 BPM P-R Int : 142 ms QRS Dur : 068 ms QT Int : 366 ms P-R-T Axes : 066 022 062 degree s QTc Int : 442 ms Normal sinus rhythm Normal ECG No previous ECGs available Confirmed by ADAM STEPHENS, JUAN ([id number]) on 09/27/19 4:54:43 PM Referred By: Nixon Lorenzo Confirmed by:JUAN SALAMANCA MD Electronically Signed by Juan Khan MD on at 4216 PATIENT NAME: ASIF PAUL 61"
[2022-10-01] MEDS ORDERED: NA CHLORIDE 0.9% 1,000 ML ONE (00:05)
[2022-10-01] MEDS ORDERED: MORPHINE 2 MG/ML SYR ONE (00:05)
[2022-10-01] MEDS ORDERED: ONDANSETRON 4 MG/2 ML VIAL ONE (00:05)
--- NOTE | 2022-10-01 01:34 | EDPHYS ---
Physician Documentation [facility] Name: Shantal Real Age: 67 yrs Sex: Female : 1955 Arrival Date: 09/30/2022 Time: 23:10 Bed 6 Private MD: ED Physician Saul Cole HPI: 10/01 01:26 This 67 yrs old Female presents to ER via EMS with complaints of Leg Pain - sp4 hematoma s/p left leg stent placement. 02:11 67-year-old female presents with a cute onset left groin hematoma from recent left sp4 femoral arterial puncture. Patient was managed at [facility] by Dr. Lorenzo , who performed left lower extremity angiography but reported that stent was not necessary. After patient went home she developed moderate size left groin hematoma and presents here for evaluation. Patient denied any numbness tingling in the left lower extremity. EMS brought patient in today and they marked left lower extremity pulses.. 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 Note Plus 2 boosters Pneumococcal vaccine is up to date, Flu vaccine is up to date. - Social history:: Smoking status: Patient/guardian denies using tobacco, Stopped _ months ago 5. - Family history:: not pertinent. ROS: 10/01 02:11 Constitutional: Negative for fever, chills, and weight loss, Cardiovascular: Negative sp4 for chest pain, palpitations, and edema, positive for left groin hematoma from recent left groin arterial puncture All other systems are negative. Exam: 02:11 Constitutional: This is a well developed, well nourished patient who is awake, alert, sp4 and in no acute distress. Head/Face: Normocephalic, atraumatic. Eyes: Pupils equal round and reactive to light, extra-ocular motions intact. Lids and lashes normal. Conjunctiva and sclera are not injected. Cornea within normal limits. Periorbital areas with no swelling, redness, or edema. ENT: Nares patent. No nasal discharge, no septal abnormalities noted. Tympanic membranes are normal and external auditory canals are clear. Oropharynx with no redness, swelling, or masses, exudates, or evidence of obstruction, uvula midline. Mucous membranes moist. Neck: Trachea midline, no thyromegaly or masses palpated, and no cervical lymphadenopathy. Supple, full range of motion without nuchal rigidity, or vertebral point tenderness. Chest/axilla: Normal chest wall appearance and motion. Nontender with no deformity. No lesions are appreciated. Cardiovascular: Regular rate and rhythm with a normal S1 and S2. No gallops, murmurs, or rubs. Normal PMI, no JVD. No pulse deficits. Left femoral pulses are present, left lower extremity pulses are present and are intact. Neurovascular status of lower extremity is intact. There is mild to moderate left groin hematoma over the left femoral artery directly at the site of arterial puncture Respiratory: Lungs have equal breath sounds bilaterally, clear to auscultation and percussion. No rales, rhonchi or wheezes noted. No increased work of breathing, no retractions or nasal flaring. Abdomen/GI: Soft, non-tender, with normal bowel sounds. No distension or tympany. No guarding or rebound. No evidence of tenderness throughout. Back: No spinal tenderness. No costovertebral tenderness. Skin: Warm, dry with normal turgor. Normal color with no rashes, no lesions, and no evidence of cellulitis. MS/ Extremity: Pulses equal, no cyanosis. Neurovascular intact. Full, normal range of motion. Neuro: Awake and alert, GCS 15, oriented to person, place, time, and situation. Cranial nerves II-XII grossly intact. Motor strength 5/5 in all extremities. Sensory grossly intact. Psych: Awake, alert, with orientation to person, place and time. Behavior, mood, and affect are within normal limits 02:11 ECG was reviewed by the Attending Physician. There is sinus tachycardia at the rate of sp4 107, EKG time 2342, no ST elevation or depression, no ectopy Vital Signs: 09/30 23:20 BP 164 / 91; Pulse 113; Resp 18; Temp 98.5; Pulse Ox 96% ; Weight 41.28 kg; Height 4 vc1 ft. 10 in. ; Pain 7/10; 23:52 BP 143 / 76; Pulse 110; Resp 19; Pulse Ox 98% on R/A; kd3 10/01 01:02 BP 154 / 89; Pulse 108; Resp 16; Pulse Ox 95% on R/A; kd3 01:15 BP 139 / 92; Pulse 106; Resp 18; Pulse Ox 95% on R/A; kd3 02:46 BP 134 / 76; Pulse 102; Resp 16; Pulse Ox 92% on R/A; kd3 09/30 23:20 Body Mass Index 19.02 (41.28 kg, 147.32 cm) vc1 09/30 23:20 Pain Scale: Adult vc1 MDM: 09/30 23:25 Patient medically screened. sp4 10/01 01:27 ED course: US - EXAM DESCRIPTION: Lower ExtremityArtery Uni Ltd RadLex: US LOWER sp4 EXTREMITYARTERIES LIMITED FOLLOW-UP UNILATERAL CLINICAL HISTORY: left groin hematoma from arterial puncture. COMPARISON: None. TECHNIQUE: Survey ultrasound imaging of the arterial system of the left lower extremity was performed including grayscale, color, and spectral Doppler evaluation with disability representative images obtained. FINDINGS: Right inguinal region suspected hematoma measures 0.9 cm. No definite nonartifactual flow on color Doppler imaging. No definite pseudoaneurysm identified. Common femoral artery: Peak systolic velocity 138 cm/s. Triphasic to biphasic waveform. Superficial femoral artery, proximal: Peak systolic velocity 103.7 cm/s. Triphasic waveform. Superficial femoral artery, mid: Peak systolic velocity 109.5 cm/s. Triphasic waveform. Superficial femoral artery, distal: Peak systolic velocity 108.7 cm/s. Triphasic waveform. Popliteal artery: Peak systolic velocity 67.9 cm/s. Triphasic waveform. Posterior tibial artery: Peak systolic velocity 37.6 cm/s. Biphasic waveform. Dorsalis pedis artery: Peak systolic velocity 48.3 cm/s. Biphasic waveform. IMPRESSION: 1. Small suspected right inguinal hematoma. 2. No arterial occlusions. Triphasic to biphasic waveforms in the examined vessels.. 02:11 Differential diagnosis: contusion, abrasion, tendonitis. Data reviewed: vital signs, sp4 nurses notes, EMS record, old medical records, lab test result(s), EKG, radiologic studies. 02:19 Consideration of Admission/Observation Patient was admitted/placed on observation. sp4 Escalation of care including admission/observation considered. Management of patient was discussed with the following: Hospitalist: Discussed with admission team. Controlled Area Checker: Discussed with patient's stapler machine who advised monitoring patient overnight observing and repeat assessment in the morning.. ED course: Patient's stapler machine advised observation in the hospital, repeat assessment in the morning. Patient was admitted for obs in stable condition.. 09/30 23:20 Order name: Basic Metabolic Panel; Complete Time: 01:56 sp4 09/30 23:20 Order name: CBC with Diff; Complete Time: 01:42 sp4 09/30 23:20 Order name: LFT's; Complete Time: :56 sp4 09/30 23:20 Order name: Magnesium; Complete Time: :56 sp4 09/30 23:20 Order name: NT PRO-BNP; Complete Time: :56 sp4 09/30 23:20 Order name: PT-INR; Complete Time: 01:42 sp4 09/30 23:20 Order name: Troponin HS; Complete Time: :56 sp4 09/30 23:20 Order name: Lower Extremity Artery Uni Ltd US sp4 09/30 23:20 Order name: EKG; Complete Time: 23:20 sp4 09/30 23:20 Order name: Cardiac monitoring; Complete Time: 23:46 sp4 09/30 23:20 Order name: EKG - Nurse/Tech; Complete Time: 23:46 sp4 09/30 23:20 Order name: IV Saline Lock; Complete Time: 01:03 sp4 09/30 23:20 Order name: Labs collected and sent; Complete Time: 00:47 sp4 09/30 23:20 Order name: O2 Per Protocol; Complete Time: 23:46 sp4 09/30 23:20 Order name: O2 Sat Monitoring; Complete Time: 23:46 sp4 EC:11 Rate is 107 beats/min. Rhythm is regular, Sinus tachycardia. QRS [place] is Normal. LA sp4 interval is normal. QRS interval is normal. QT interval is normal. T waves are Normal. No ST changes noted. Clinical impression: No evidence of ischemia. Interpreted by me. Administered Medications: 00:46 Drug: morphine IVP or IV 2 mg Route: IVP; Infused Over: 4 mins; Site: right antecubital;kd3 01:57 Follow up: Response: No adverse reaction rv 00:46 Drug: Ondansetron IVP 4 mg Route: IVP; Site: right antecubital; kd3 01:57 Follow up: Response: No adverse reaction rv 00:46 Drug: NS 0.9% IV 1000 ml Route: IV; Rate: 75 ml/hr; Site: right antecubital; kd3 01:57 Follow up: IV Status: Infusion continued upon admission rv 02:09 Drug: Potassium Chloride PO 40 mEq Route: PO; rv 02:09 Follow up: Response: Medication administered at discharge. rv Disposition Summary: 10/01/22 01:34 Hospitalization Ordered Hospitalization Status: Observation sp4 Provider: Wilder Bautista sp4 Condition: Stable sp4 Problem: new sp4 Symptoms: have improved sp4 Bed/Room Type: Standard sp4 Location: Telemetry/MedSurg (observation)(10/01/22 15:52) bd Room Assignment: [facility](10/01/22 15:52) bd Diagnosis - Nontraumatic hematoma of soft tissue sp4 - Left femoral artery arterial puncture with associated hematoma, postoperative sp4 hematoma Forms: - Medication Reconciliation Form sp4 - SBAR form sp4 - Leadership Thank You Letter sp4 Signatures: Dispatcher [employer] EDMS Emmy Reyes Lee, CATHEAD OPERATOR-C CATHEAD OPERATOR-Cla1 Tasha Rahman RN RN eb1 Noble Akers, RN RN Lisa Redding RN RN kd3 Isabella Brannon, RN RN vc1 Saul Cole MD MD sp4 Corrections: (The following items were deleted from the chart) 02:27 01:34 Telemetry/MedSurg (observation) sp4 eb1 02:27 01:34 sp4 eb1 15:52 02:27 [facility] ER HOLD eb1 bd 15:52 02:27 ERHOLD- eb1 bd
--- NOTE | 2022-10-01 01:34 | ER ---
Nurse's Notes [facility] Name: Shantal Real Age: 67 yrs Sex: Female : 1955 Arrival Date: 09/30/2022 Time: 23:10 Bed 6 Private MD: Diagnosis: Nontraumatic hematoma of soft tissue;Left femoral artery arterial puncture with associated hematoma, postoperative hematoma Presentation: 09/30 23:20 Chief complaint: Patient states: I had a procedure done today at [facility] and vc they told me if I get a knot or any swelling to go to the ER because I may need to go back to the OR. Coronavirus screen: Vaccine status: Patient reports receiving the 2nd dose of the covid vaccine. Client denies travel out of the [place] in the last 14 days. At this time, the client does not indicate any symptoms associated with coronavirus-19. Ebola Screen: Patient negative for fever greater than or equal to 101.5 degrees Fahrenheit, and additional compatible Ebola Virus Disease symptoms Patient denies exposure to infectious person. Patient denies travel to an Ebola-affected area in the 21 days before illness onset. No symptoms or risks identified at this time. Initial Sepsis Screen: Does the patient meet any 2 criteria? HR > 90 bpm. No. Patient's initial sepsis screen is negative. Does the patient have a suspected source of infection? No. Patient's initial sepsis screen is negative. Risk Assessment: Do you want to hurt yourself or someone else? Patient reports no desire to harm self or others. Note Pt had stents placed in left leg. Onset of symptoms was September 30, 2022. 23:20 Method Of Arrival: EMS: [facility] vc1 23:20 Acuity: ELIZA 3 vc1 Triage Assessment: 23:27 General: Appears in no apparent distress. uncomfortable, Behavior is calm, cooperative, vc1 appropriate for age. Pain: Complains of pain in left femoral area Pain does not radiate. Pain currently is 10 out of 10 on a pain scale. Quality of pain is described as. EENT: No deficits noted. No signs and/or symptoms were reported regarding the EENT system. Neuro: Level of Consciousness is awake, alert, obeys commands, Oriented to person, place, time, situation. Cardiovascular: No deficits noted. Respiratory: Airway is patent Respiratory effort is even, unlabored, Respiratory pattern is regular, symmetrical. GI: Abdomen is distended, noted to have ascites, Pt had 3.5 L drained from abdomen last week. : No deficits noted. No signs and/or symptoms were reported regarding the genitourinary system. Derm: surgical site with hematoma to left femoral area. Musculoskeletal: No deficits noted. No signs and/or symptoms reported regarding the musculoskeletal system. 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 Note Plus 2 boosters Pneumococcal vaccine is up to date, Flu vaccine is up to date. - Social history:: Smoking status: Patient/guardian denies using tobacco, Stopped _ months ago 5. - Family history:: not pertinent. Screenin:25 [facility] ED Fall Risk Assessment (Adult) History of falling in the last 3 months, vc1 including since admission No falls in past 3 months (0 pts) Confusion or Disorientation No (0 pts) Intoxicated or Sedated No (0 pts) Impaired Gait No (0 pts) Mobility Assist Device Used No (0 pt) Altered Elimination No (0 pt) Score/Fall Risk Level 0 - 2 = Low Risk Oriented to surroundings, Maintained a safe environment, Educated pt \T\ family on fall prevention, incl call for assistance when getting out of bed. Abuse screen: Denies threats or abuse. Nutritional screening: No deficits noted. Tuberculosis screening: No symptoms or risk factors identified. Assessment: 23:46 General: Appears uncomfortable, Behavior is cooperative, anxious. Pain: Complains of kd3 pain in left femoral area. Neuro: Level of Consciousness is awake, alert, obeys commands, Oriented to person, place, time, situation. Cardiovascular: Pulses are absent in right dorsalis pedis artery and left dorsalis pedis artery. Respiratory: Airway is patent Trachea midline Respiratory effort is even, unlabored, Respiratory pattern is regular, symmetrical. GI: Abdomen is distended. 10/01 01:03 Reassessment: No changes from previously documented assessment. Patient and/or family kd3 updated on plan of care and expected duration. Pain level reassessed. Patient is alert, oriented x 3, equal unlabored respirations, skin warm/dry/pink. Vital Signs: 09/30 23:20 BP 164 / 91; Pulse 113; Resp 18; Temp 98.5; Pulse Ox 96% ; Weight 41.28 kg; Height 4 vc1 ft. 10 in. ; Pain 7/10; 23:52 BP 143 / 76; Pulse 110; Resp 19; Pulse Ox 98% on R/A; kd3 10/01 01:02 BP 154 / 89; Pulse 108; Resp 16; Pulse Ox 95% on R/A; kd3 01:15 BP 139 / 92; Pulse 106; Resp 18; Pulse Ox 95% on R/A; kd3 02:46 BP 134 / 76; Pulse 102; Resp 16; Pulse Ox 92% on R/A; kd3 09/30 23:20 Body Mass Index 19.02 (41.28 kg, 147.32 cm) vc1 09/30 23:20 Pain Scale: Adult vc1 ED Course: 09/30 23:12 Patient arrived in ED. rv1 23:18 Lisa Johnston, GURWINDER is Primary Nurse. kd3 23:19 Saul Cole MD is Attending Physician. sp4 23:22 Triage completed. vc1 23:26 Patient has correct armband on for positive identification. Call light in reach. Pulse vc1 ox on. NIBP on. 23:26 Arm band placed on right wrist. vc1 10/01 00:27 Lower Extremity Artery Uni Ltd US In Process Unspecified. EDMS 00:46 Basic Metabolic Panel Sent. kd3 00:46 CBC with Diff Sent. kd3 00:47 LFT's Sent. kd3 00:47 Magnesium Sent. kd3 00:47 NT PRO-BNP Sent. kd3 00:47 PT-INR Sent. kd3 00:47 Troponin HS Sent. kd3 00:47 Inserted saline lock: 20 gauge in right antecubital area, using aseptic technique. kd3 Blood collected. 01:33 Wilder Bautista MD is Hospitalizing Provider. sp4 02:09 Provided Education on: BLEEDING. rv 02:09 No provider procedures requiring assistance completed. Patient admitted, IV remains in rv place. Administered Medications: 00:46 Drug: morphine IVP or IV 2 mg Route: IVP; Infused Over: 4 mins; Site: right antecubital;kd3 01:57 Follow up: Response: No adverse reaction rv 00:46 Drug: Ondansetron IVP 4 mg Route: IVP; Site: right antecubital; kd3 01:57 Follow up: Response: No adverse reaction rv 00:46 Drug: NS 0.9% IV 1000 ml Route: IV; Rate: 75 ml/hr; Site: right antecubital; kd3 01:57 Follow up: IV Status: Infusion continued upon admission rv 02:09 Drug: Potassium Chloride PO 40 mEq Route: PO; rv 02:09 Follow up: Response: Medication administered at discharge. rv Medication: 09/30 23:30 VIS not applicable for this client. vc1 Outcome: 10/01 01:34 Decision to Hospitalize by Provider. sp4 02:10 Admitted to ER Hold. Please see [facility] for further documentation. rv 02:10 Condition: stable 02:10 Instructed on the need for admit. 16:04 Patient left the ED. mb9 Signatures: Dispatcher [employer] EDMS Noble Akers RN RN rv Lisa Johnston RN RN kd3 Isabella Brannon RN RN vc1 Chitra Fernandez RN RN mb9 Tash Moore rv1 Saul Cole MD MD sp4
[2022-10-01 01:35] LABS: Protime INR 1.02
[2022-10-01 01:37] LABS: Hematocrit 38.5 % (36.0-45.0); Lymphocytes % 12.4 % (15.3-44.8); MCV 95.2 fL (80-100); Platelets 173 thou/uL (152-406); RBC Red Blood Cell Count 4.05 M/uL (3.86-4.86)
[2022-10-01 01:55] LABS: Albumin 3.1 g/dL (3.4-5.0); Bilirubin Direct 0.3 mg/dL (0-0.2); Bilirubin Indirect, Calculated 0.2 mg/dL (0.2-0.8); Bilirubin Total 0.5 mg/dL (0.2-1.0); Magnesium 1.8 mg/dL (1.6-2.4); Potassium 3.1 mEq/L (3.5-5.1); Protein, Total 7.6 g/dL (6.4-8.2); Troponin High Sensitivity 9.8 pg/mL (<58.9)
[2022-10-01] MEDS ORDERED: POTASSIUM CL SA 10 MEQ TAB PO ONE (02:09)
[2022-10-01] MEDS ORDERED: ONDANSETRON 4 MG/2 ML VIAL IV PRN (02:16)
[2022-10-01 02:30] VITALS: BMI 19.0
[2022-10-01] MEDS: HYDROCODONE/APAP 5/325 MG TAB PO PRN (02:44)
--- NOTE | 2022-10-01 02:47 | P.HP ---
Certification for Inpatient Patient admitted to: Observation With expected LOS: <2 Midnights Patient will require the following post-hospital care: None Practitioner: I am a practitioner with admitting privileges, knowledge of patient current condition, hospital course, and medical plan of care. Services: Services provided to patient in accordance with Admission requirements found in Title 42 Section 412.3 of the Code of Federal Regulations <Jeremy Rajan - Last Filed: 10/01/22 02:42> Patient History Date of Service: 10/01/22 Reason for admission: Left femoral hematoma History of Present Illness: 67-year-old female with history of hepatitis Crecently diagnosed, hypertension who recently had an angiogram of her left lower extremity performed on 09/30/2022 at noon. She denied knowing why she had the procedure done reports she was sent by her primary care doctor, she does not think that any intervention or stents were placed. She noticed onset of swelling and pain to the left groin area that started this evening around midnight for that reason she came to the emergency department by EMS. She was evaluated in the emergency department found to have a hematoma present in the left femoral area, good pulses present. ED physician spoke with patient's paper core machine operator to perform angiogram Dr. Lorenzo recommended admission under observation to monitor for expansion or worsening of the hematoma. - Past Medical/Surgical History Has patient received pneumonia vaccine in the past: Yes -: Hepatitis C -: Hypertension Past Surgical History: Unable to obtain Psychosocial/ Personal History: Patient lives at home with her daughter - Family History Family History: Reviewed- Non-Contributory - Social History Smoking Status: Never smoker Alcohol use: No CD- Drugs: No Caffeine use: Yes Place of Residence: Home <Jeremy Rajan - Last Filed: 10/01/22 02:42> Date of Service: 10/01/22 <Ranjeet Basurto - Last Filed: 10/01/22 14:56> Allergies No Known Allergies Allergy (Verified 09/22/22 08:57) Home Medications: Furosemide [Lasix] 40 mg PO DAILY 08/13/22 Gabapentin 300 mg PO TID 08/13/22 Potassium Chloride [Klor-Con M20] 20 meq PO DAILY 08/13/22 Sertraline [Zoloft] 50 mg PO DAILY 08/13/22 Sofosbuvir/Velpatasvir [Epclusa 400 mg-100 mg Tablet] 1 each PO DAILY 09/22/22 Review of Systems 10-point ROS is otherwise unremarkable Musculoskeletal: Leg Pain, Other (Groin pain) <Jeremy Rajan - Last Filed: 10/01/22 02:42> Physical Examination - Vital Signs Temperature: 98.2 F Blood Pressure: 136/83 Pulse: 103 Respirations: 18 Pulse Ox (%): 93 - Physical Exam General: Alert, In no apparent distress, Oriented x3 HEENT: Atraumatic, PERRLA, Mucous membr. moist/pink, EOMI, Sclerae nonicteric Neck: Supple, 2+ carotid pulse no bruit, No LAD, Without JVD or thyroid abnormality Respiratory: Clear to auscultation bilaterally, Normal air movement Cardiovascular: Regular rate/rhythm, Normal S1 S2 Capillary refill: <2 Seconds Gastrointestinal: Normal bowel sounds, No tenderness Musculoskeletal: No tenderness Integumentary: Other (Swelling present to left inguinal region) Neurological: Normal speech, Normal strength at 5/5 x4 extr, Normal tone, Normal affect - Studies Laboratory Data (last 24 hrs) 10/01/22 10/01/22 10/01/22 00:42 00:42 00:42 WBC 8.50 Hgb 12.6 Hct 38.5 Plt Count 173 PT 11.2 INR 1.02 Sodium 138 Potassium 3.1 L BUN 14 Creatinine 0.79 Glucose 171 H Magnesium 1.8 Total Bilirubin 0.5 AST 35 ALT 30 Alkaline Phosphatase 112 <Jeremy Rajan - Last Filed: 10/01/22 02:42> - Studies Laboratory Data (last 24 hrs) 10/01/22 10/01/22 10/01/22 00:42 00:42 00:42 WBC 8.50 Hgb 12.6 Hct 38.5 Plt Count 173 PT 11.2 INR 1.02 Sodium 138 Potassium 3.1 L BUN 14 Creatinine 0.79 Glucose 171 H Magnesium 1.8 Total Bilirubin 0.5 AST 35 ALT 30 Alkaline Phosphatase 112 <Ranjeet Basurto - Last Filed: 10/01/22 14:56> Assessment and Plan - Plan Assessment: Left femoral hematoma status post left lower extremity angiogram 10/01/2019 Hepatitis C Hypertension Plan: Left femoral hematoma status post left lower extremity angiogram 10/01/2019 Every 4 neurovascular checks, dressing in place, hematoma noted on ultrasound no aneurysm/pseudoaneurysm. No current expansion noted. Continue to monitor, repeat CBC in the morning. Cardiology consult. Hepatitis C Continue outpatient management Hypertension Continue home medication. DVT PPX:SCD Code status: Full code Discharge Plan: Home Plan to discharge in: 24 Hours - Advance Directives Does patient have a Living Will: No Does patient have a Durable POA for Healthcare: No - Code Status/Comfort Care Code Status Assessed: Yes (Full code) Critical Care: No Time Spent Managing Pts Care (In Minutes): 55 <Jeremy Rajan - Last Filed: 10/01/22 02:42> Physician Review: Patient Assessed, Agree with Above Assessment and Plan <Ranjeet Basurto - Last Filed: 10/01/22 14:56>
[2022-10-01] MEDS ORDERED: HYDROCODONE/APAP 5/325 MG TAB ONE (02:51)
[2022-10-01 08:44] VITALS: O2SAT 96
--- NOTE | 2022-10-01 11:21 | RAD REPORT ---
EXAM DESCRIPTION: US - Lower Extremity Artery Uni Ltd - 10/01/2022 12:25 am CLINICAL HISTORY: Left groin hematoma from arterial puncture. COMPARISON: None. TECHNIQUE: Survey ultrasound imaging of the arterial system of the left lower extremity was performe d including grayscale, color, and spectral Doppler evaluation with business process representative images obtained. FINDINGS: Right inguinal region suspected hematoma measures 0.9 cm. No definite nonartifactual flow on color Doppler imaging. No definite pseudoaneurysm identified. Common femoral artery: Peak systolic velocity 138 cm/s. Triphasic to biphasic waveform. Superficial femoral artery, proximal: Peak systolic velocity 103.7 cm/s. Triphasic waveform. Superficial femoral artery, mid: Peak systolic velocity 109.5 cm/s. Triphasic waveform. Superficial femoral artery, distal: Peak systolic velocity 108.7 cm/s. Triphasic waveform. Popliteal artery: Peak systolic velocity 67.9 cm/s. Triphasic waveform. Posterior tibial artery: Peak systolic velocity 37.6 cm/s. Biphasic waveform. Dorsalis pedis artery: Peak systolic velocity 48.3 cm/s. Biphasic waveform. IMPRESSION: 1. Small suspected right inguinal hematoma. 2. No arterial occlusions. Triphasic to biphasic waveforms in the examined vessels. Electronically signed by: Deirdre Granados MD 10/01/2022 12:49 AM CDT Due to temporary technical issues with the PACS/Fluency reporting system, reports are being signed by the in house radiologist without review as a courtesy to ensure prompt reporting. The interpreting r adiologist is fully responsible for the content of the report.
[2022-10-01 18:24] LABS: Absolute Lymphocytes (CBC) 1.7 K/uL (0.7-4.9); Hematocrit 42.1 % (36.0-45.0); Lymphocytes % 20.2 % (15.3-44.8); MCV 95.1 fL (80-100); MPV 8.7 fL (7.6-11.3); Platelets 139 thou/uL (152-406); RBC Red Blood Cell Count 4.42 M/uL (3.86-4.86)
--- NOTE | 2022-10-01 18:26 | EKG ---
Test Date: 2022-09-30 Test Time: 23:42:48 Closing Machine Operator: BHUPINDER MEASUREMENT RESULTS: Intervals: Rate: 107 MN: 168 QRSD: 76 QT: 352 QTc: 469 [place]: P: 69 MN: 168 QRS: 37 T: 51 INTERPRETIVE STATEMENTS: Sinus tachycardia Otherwise normal ECG Compared to ECG 09/02/2022 13:54:26 Sinus rhythm no longer present Electronically Signed On 10-01-22 18:25:03 CDT by Nixon Lorenzo
[2022-10-02] MEDS: HYDROCODONE/APAP 5/325 MG TAB PO PRN (04:39)
--- NOTE | 2022-10-02 05:24 | P.DS ---
Admission Date: 10/01/22 Discharge Date: 10/02/22 Reason for Admission: Left femoral hematoma Procedures: Arterial Doppler 10/01/2022 Small inguinal hematoma Brief History of Present Illness: 67-year-old female with history of hepatitis Crecently diagnosed, hypertension who recently had an angiogram of her left lower extremity performed on 09/30/2022 at noon. She denied knowing why she had the procedure done reports she was sent by her primary care doctor, she does not think that any intervention or stents were placed. She noticed onset of swelling and pain to the left groin area that started this evening around midnight for that reason she came to the emergency department by EMS. She was evaluated in the emergency department found to have a hematoma present in the left femoral area, good pulses present. ED physician spoke with patient's hand shoe cutter to perform angiogram Dr. Lorenzo recommended admission under observation to monitor for expansion or worsening of the hematoma. Hospital Course: Patient was admitted for left inguinal hematoma after angiogram was performed, hematoma has remained stable, hemoglobin stable as well. No significant pain currently. Cleared for discharge by cardiology. she will be discharged to follow-up with her PCP and cardiology on outpatient basis. <Jeremy Rajan - Last Filed: 10/02/22 05:22> Admission Date: 10/01/22 Discharge Date: 10/02/22 <Ranjeet Basurto - Last Filed: 10/02/22 07:52> Disposition: ROUTINE DISCHARGE Vital Signs/Physical Exam: Temp Pulse Resp BP Pulse Ox 97.7 F 103 H 16 145/82 H 98 10/01/22 20:00 10/01/22 20:00 10/02/22 04:39 10/01/22 20:00 10/02/22 04:39 General: Alert, In no apparent distress, Oriented x3 HEENT: Atraumatic, PERRLA, EOMI Neck: Supple, JVD not distended Respiratory: Clear to auscultation bilaterally, Normal air movement Cardiovascular: Regular rate/rhythm, Normal S1 S2 Capillary refill: <2 Seconds Gastrointestinal: Normal bowel sounds, No tenderness Musculoskeletal: No tenderness Integumentary: No rashes Neurological: Normal speech, Normal tone, Normal affect Laboratory Data at Discharge: WBC 8.40 thou/uL (4.3-10.9) 10/01/22 18:06 Hgb 13.7 g/dL (12.0-15.0) D 10/01/22 18:06 Hct 42.1 % (36.0-45.0) 10/01/22 18:06 Plt Count 139 thou/uL (152-406) L 10/01/22 18:06 PT 11.2 SECONDS (9.5-12.5) 10/01/22 00:42 INR 1.02 10/01/22 00:42 Sodium 138 mEq/L (136-145) 10/01/22 00:42 Potassium 3.1 mEq/L (3.5-5.1) L 10/01/22 00:42 BUN 14 mg/dL (7-18) 10/01/22 00:42 Creatinine 0.79 mg/dL (0.55-1.02) 10/01/22 00:42 Glucose 171 mg/dL (74-106) H 10/01/22 00:42 Magnesium 1.8 mg/dL (1.6-2.4) 10/01/22 00:42 Total Bilirubin 0.5 mg/dL (0.2-1.0) 10/01/22 00:42 AST 35 U/L (15-37) 10/01/22 00:42 ALT 30 U/L (13-56) 10/01/22 00:42 Alkaline Phosphatase 112 U/L (45-117) 10/01/22 00:42 <Jeremy Rajan - Last Filed: 10/02/22 05:22> Vital Signs/Physical Exam: Temp Pulse Resp BP Pulse Ox 98.2 F 99 H 16 135/68 98 10/02/22 04:00 10/02/22 04:00 10/02/22 04:39 10/02/22 04:00 10/02/22 04:39 Laboratory Data at Discharge: WBC 8.40 thou/uL (4.3-10.9) 10/01/22 18:06 Hgb 13.7 g/dL (12.0-15.0) D 10/01/22 18:06 Hct 42.1 % (36.0-45.0) 10/01/22 18:06 Plt Count 139 thou/uL (152-406) L 10/01/22 18:06 PT 11.2 SECONDS (9.5-12.5) 10/01/22 00:42 INR 1.02 10/01/22 00:42 Sodium 138 mEq/L (136-145) 10/01/22 00:42 Potassium 3.1 mEq/L (3.5-5.1) L 10/01/22 00:42 BUN 14 mg/dL (7-18) 10/01/22 00:42 Creatinine 0.79 mg/dL (0.55-1.02) 10/01/22 00:42 Glucose 171 mg/dL (74-106) H 10/01/22 00:42 Magnesium 1.8 mg/dL (1.6-2.4) 10/01/22 00:42 Total Bilirubin 0.5 mg/dL (0.2-1.0) 10/01/22 00:42 AST 35 U/L (15-37) 10/01/22 00:42 ALT 30 U/L (13-56) 10/01/22 00:42 Alkaline Phosphatase 112 U/L (45-117) 10/01/22 00:42 <Ranjeet Basurto - Last Filed: 10/02/22 07:52> Diet: AHA Activity: Ad jeanie Time spent managing pt's care (in minutes): 20 <Jeremy Rajan - Last Filed: 10/02/22 05:22> Physician Review: Patient Assessed, Agree with Above Assessment and Plan <Ranjeet Basurto - Last Filed: 10/02/22 07:52> Home Medications: Furosemide [Lasix] 40 mg PO DAILY 08/13/22 Potassium Chloride [Klor-Con M20] 20 meq PO DAILY 08/13/22 RX: Gabapentin 300 mg PO TID 08/13/22 Sertraline [Zoloft] 50 mg PO DAILY 08/13/22 Sofosbuvir/Velpatasvir [Epclusa 400 mg-100 mg Tablet] 1 each PO DAILY 09/22/22 RX: Aspirin 81 mg PO 10/01/22 Physician Discharge Instructions: 1. Please call and schedule a follow-up appointment with your PCP in 3-5 days 2. Please call and schedule a follow-up appointment with Cardiology (Dr. Lorenzo) in 3-5 days Followup: MIGUEL ANGEL MICHELLE [Primary Care Provider] - Nixon Lorenzo MD [ACTIVE - CAN ADMIT] -
[2022-10-02 10:04] VITALS: BP 145/85; TEMP 98.4
== END 2022-10-02 08:30 | disposition home or self-care (01) ==
LOC: ER 23:10 → ERHOLD 10-01 01:54 → 2ND 10-01 15:59
PROVIDERS: ADMIT Internal Medicine; ATTEND Internal Medicine
DX: S30.1XXA Contusion of abdominal wall, initial encounter (principal); L76.32 Postprocedural hematoma of skin and subcutaneous tissue following other procedure; X58.XXXA Exposure to other specified factors, initial encounter; Y93.89 Activity, other specified; Y92.9 Unspecified place or not applicable; B19.20 Unspecified viral hepatitis C without hepatic coma; I10 Essential (primary) hypertension; Z98.890 Other specified postprocedural states
CPT/HCPCS: 36415; 80048; 80076; 83735; 83880; 84484; 85025; 85610; 93005; 93926; 96361; 96374; 96375; 99285

== ENCOUNTER 2022-10-13 14:46 | Observation (INO) | payer OTHER ==
--- OUTSIDE RECORDS SUMMARY | 2022-10-13 14:50 | XMS REPORT | Continuity of Care Document ---
:1955 Author Organization [facility] t Address [address] [facility] [address] [place] [address] Care Team Providers Name Role Phone Sam Proctor Primary Care Physician Sam Proctor Attending Clinician Unavailable Dima Veras MD Attending Clinician Nixon Lorenzo Attending Clinician Unavailable Elizabeth Nielsen RN Attending Clinician Unavailable Sam Proctor Attending Clinician Any Hoover RN Attending Clinician Unavailable AVERY NARAYANAN Attending Clinician Unavailable Robel Perez DO Attending Clinician Marcus Guaman MD Attending Clinician Avery Narayanan MD Attending Clinician Gustavo Proctor Admitting Clinician Unavailable AVERY NARAYANAN Admitting Clinician Unavailable Avery Narayanan MD Admitting Clinician Payers Payer Name Policy Type Policy Number Effective Date Expiration Date S ource Problems Condition Condition Condition Status Onset Resolution Last Treating Co mments Source Name Details Category Date Date Treatment Clinician Date Other Other Disease 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 8-17 [facility] of liver of liver 00:00: Medica l 00 Center Portal Portal Disease Recurre [facility] hypertensi hypertensi nce 8-17 Treesa kes on on 00:00: Medical 00 Center Chronic Chronic Disease Recurre [facility] hepatitis hepatitis nce 8-17 [facility] C without C without 00:00: Medi shireen hepatic hepatic 00 Center coma coma Liver mass Liver mass Disease Active [facility] 00:[facility]: Medical 00 [place] Lung mass Lung mass Disease Active [facility] 00[facility] Medical 00 Center Paresthesi Paresthesi Disease Active U nivers as as 4-12 ity of 00:00: [place] [address] Medical Branch Allergies, Adverse Reactions, Alerts Allergy Allergy Status Severity Reaction(s) Onset Inactive Treating Comm ents Source Name Type Date Date Clinician No Known DA Active U [facility] Allergie 8-11 Clear s 00:00: Puentes [address] [place] [address] NO KNOWN Drug Active Univers ALLERGIE Class ity of S [place] [facility] Social History Social Habit Start Date Stop Date Quantity Comments Source History SDOH Social Unive rsity of [facility] Med ical Together Branch History SDOH Social Unive rsity of [facility] Medical Branch History SDOH Social Unive rsity of [facility] Medical Membership Branch History SDOH Social Unive rsity of [facility] Medical Meetings Branch History of tobacco Cigarette Smoker University of use [facility] [place] [facility] Exposure to 2022-05-18 2022-05-28 Not sure University of SARS-CoV-2 (event) 00:00:00 09:16:00 [place] [facility] History SDOH Food 2022-05-28 2022-05-28 1 Univers ity of Scarcity 00:00:00 00:00:00 [place] [facility] History SDOH 2022-05-28 2022-05-28 2 University o f Transport Med 00:00:00 00:00:00 [place] Medic al Branch History SDOH 2022-05-28 2022-05-28 2 University o f Transport Non-Med 00:00:00 00:00:00 [place] M edical Branch History SDOH 2022-05-28 2022-05-28 2 University o f Housing Unable to 00:00:00 00:00:00 [place] M [place]ical Pay Branch History SDOH 2022-05-28 2022-05-28 1 University o f Housing Places 00:00:00 00:00:00 [place] Medi shireen Lived Branch History SDOH 2022-05-28 2022-05-28 2 University o f Housing Homeless 00:00:00 00:00:00 [place] Me dical Last Year Branch Tobacco use and 2022-05-28 2022-05-28 Smokeless Universit y of exposure 00:00:00 00:00:00 tobacco non-user [place] Me dical Branch History SDOH 2022-05-28 2022-05-28 3 University o f Alcohol Frequency 00:00:00 00:00:00 [place] M edical Branch History SDOH 2022-05-28 2022-05-28 2 University o f Alcohol Std Drinks 00:00:00 00:00:00 [place] [facility] History SDOH 2022-05-28 2022-05-28 1 University o f Alcohol Binge 00:00:00 00:00:00 [place] [facility] History SDOH Social 2022-05-28 2022-05-28 5 Unive rsity of Connections Phone 00:00:00 00:00:00 [place] M edical Branch History SDOH Social 2022-05-28 2022-05-28 4 Unive rsity of Connections Living 00:00:00 00:00:00 [place] [facility] History SDOH 2022-05-28 2022-05-28 0 University o f Physical Activity 00:00:00 00:00:00 [place] M [place]ical DPW Branch History SDOH 2022-05-28 2022-05-28 0 University o f Physical Activity 00:00:00 00:00:00 [place] M [place]ical MPS Branch History SDOH 2022-05-28 2022-05-28 5 University o f Financial 00:00:00 00:00:00 [place] [facility] History SDOH Food 2022-05-28 2022-05-28 1 Univers ity of Worry 00:00:00 00:00:00 [facility] [place] [facility] Sex Assigned At [address] 00:00:00 00[facility]00[facility]00 Medical Center Smoking Status Start Date Stop Date Source Smokes tobacco daily 2022-05-28 00:00:00 [facility] Medical Branch Medications Ordered Filled Start Stop Current Ordering Indication Dosage Frequency Signature Comments Components Source Medication Medication Date Date Medication? Clinician (SIG) Name Name Osman 2022-0 2022- No 4mg [Order [facility] Start] ity of (MEDROL) 21:35: 21:44 Name: [place] tablet 4 mg 52 :00 Methylpred Me dical nisolone Branch (MEDROL) tablet 4 mg Signed Summary: 4 mg, Oral, Q6H TAPER, 4 doses, First dose on 05/30/22 at 1645, Last dose on 05/31/22 at 1045, Routine [Order 1 End] [Order 2 Start] Name: Methylpred nisolone (MEDROL) tablet 4 mg Signed Summary: 4 mg, Oral, Q8H TAPER, 3 doses, First dose on 05/31/22 at 1845, Last dose on 06/01/22 at 1045, Routine [Order 2 End] methylPREDN 2022-0 Yes [id number] Take by [facility] 4 4-14 mouth ity of mg tablets 00:00: [place]INSTRU [place] 00 CTIONS. Medical follow Branch package directions methylPREDN 3-0 Yes [id number] Take by [facility] 4 4-14 mouth ity of mg tablets 00:00: [place]-INSTRU [place] 00 CTIONS. Medical follow Branch package directions methylPREDN 3-0 Yes [id number] Take by [facility] 4 4-14 mouth ity of mg tablets 00:00: SEE-INSTRU [place] 00 CTIONS. Medical follow Branch package directions methylPREDN 3-0 Yes [id number] Take by [facility] 4 4-14 mouth ity of mg tablets 00:00: SEE-INSTRU [place] 00 CTIONS. Medical follow Branch package directions methylPREDN 2023-0 Yes [id number] Take by [facility] 4 4-14 mouth ity of mg tablets 00:00: SEE-INSTRU [place] 00 CTIONS. Medical follow Branch package directions methylPREDN 2023-0 Yes [id number] Take by [facility] 4 4-14 mouth ity of mg tablets 00:00: SEE-INSTRU [place] 00 CTIONS. Medical follow Branch package directions methylPREDN Yes [id number] Take by Univers ISolone 4 4-14 mouth ity of mg tablets 00:00: SEE-INSTRU [place] 00 CTIONS. [facility] package directions gabapentin 2022-0 2022- No [id number] 100mg Take 1 Univers 100 mg 4-14 05-15 capsule by ity of capsule 00:00: 04:59 mouth in [place] 00 :00 the [facility] and 1 capsule at noon and 1 capsule in the evening. Do all this for 30 days. gabapentin 2022-0 2022- No [id number] 100mg Take 1 Univers 100 mg -14 05-15 capsule by ity of capsule 00:00: 04:59 mouth in [place] 00 :00 the [facility] and 1 capsule at noon and 1 capsule in the evening. Do all this for 30 days. gabapentin 2022-0 2022- No [id number] 100mg Take 1 Univers 100 mg -29 06-15 capsule by ity of capsule 00:00: 04:59 mouth in [place] 00 :00 the [facility] and 1 capsule at noon and 1 capsule in the evening. Do all this for 30 days. gadobenate 2022- No [id number] .2mL/kg 8.62 mL Univers dimeglumine 05-29 (0.2 mL/kg i ty of (MULTIHANCE 16:00: 16:00 ?43.1 kg), [place] -10 mL) 00 :00 Intravenou Medica l injection s, ONCE, 1 Bran ch 8.62 mL dose, On Thu05/29/22 at 1100, Routine gabapentin 0 Yes 100mg 100 mg, Uni vers (NEURONTIN) 13 Oral, TID, it y of capsule 100 01:00: First dose [place] mg 00 on Thu05/28/22 at Branch 2000, Until Discontinu ed, Routine enoxaparin 0 Yes 40mg 40 mg, Unive rs (LOVENOX) 412 Subcutaneo ity of injection 22:00: [place], [place]ILY, [place] 40 mg 00 First dose Medical on Thu05/28/22 at 1700, Until Discontinu ed, Routine guaiFENesin Yes 200mg 200 mg, Un lotus (FENESIN 05-28 Oral, ity of IR) tablet 21:29: Q4HPRN, [place] 200 mg 51 Starting Medical on Thu Branch 05/28/22 at 1629, Until Discontinu ed, Routine, Cough ondansetron 0 Yes 4mg 4 mg, Slow Univers (ZOFRAN 05-28 IV Push, ity of (PF)) 21:29: Q6HPRN, [place] injection 4 51 Starting Medi shireen mg on Thu Branch 05/28/22 at 1629, Until Discontinu ed, Routine, Nausea and Vomiting (N/V) sennosides- 2022-0 Yes 1{tbl} 1 tablet, Univers docusate 05-28 Oral, ity of sodium 21:29: QDAILYPRN, [place] (SENOKOT-S) 51 Starting Medi shireen 8.6-50 mg on Thu per tablet 05/28/22 at 1 tablet 1629, Until Discontinu ed, Routine, Constipati on HYDROcodone 2022- No 1{tbl} 1 tablet, Univers -acetaminop 05-28 Oral, ity of hen (NORCO 21:29: 21:28 Q6HPRN, [place] as 5) 5-325 mg 51 :51 Starting Medi shireen tablet 1 on Thu Branch tablet 05/28/22 at 1629, Until 05/30/22 at 1628, Routine, Pain (scale 4-6) acetaminoph 2022-0 Yes 650mg 650 mg, Un lotus en 12 Oral, ity of (TYLENOL) 21:29: [facility], [place] tablet 650 50 Starting Medic al mg on Thu Branch 05/28/22 at 1629, Until Discontinu ed, Routine, Pain (scale 1-3) methylpredn 0 2022- No 125mg 125 mg, U nivers isolone sod 05-28 Intravenou i ty of succ 17:00: 21:36 s, Q6H, [place] (SOLU-MEDRO 00 :57 First dose Me dical L) on Thu Branch injection 05/28/22 at 125 mg 1200, Until Discontinu ed, Routine NaCl 0.9% 2022- No 500mL at 999 Univ ers (NS) bolus 05-28 mL/hr, 500 it y of infusion 14:30: 17:30 mL, IV [place] 500 mL 00 :00 Infusion, Medical ONCE, 1 Branch dose, On Thu05/28/22 at 0930, STAT Vital Signs Vital Name Observation Time Observation Value Comments Source Systolic blood 2022-05-30 16:32:00 132 mm[Hg] Univer [facility]ity of [facility] Diastolic blood 2022-05-30 16:32:00 72 mm[facility]Hg] [facility] Heart rate 2022-05-30 16:32:00 82 /min [facility] Body temperature 2022-05-30 16:32:00 36.44 Rocio [facility] Respiratory rate 2022-05-30 16:32:00 18 /min [facility] Oxygen saturation in 2022-05-30 16:32:00 95 /[facility] Arterial blood by [facility] Pulse oximetry Branch Body weight 2022-05-30 08:43:00 46.993 kg [facility] BMI 2022-05-30 08:43:00 20.92 kg/m2 [facility] Body height 2022-05-28 14:00:00 149.9 cm [facility] Procedures Procedure Date / Time Performing Clinician Source Performed PHOSPHORUS 2022-05-30 09:01:00 Rowena [facility] MAGNESIUM 2022-05-30 09:01:00 Rowena [facility] BASIC METABOLIC PANEL 2022-05-30 09:01:00 Marcus Guaman [facility] (NA, K, CL, CO2, GLUCOSE, Medica l Branch BUN, CREATININE, CA) CBC WITH DIFF 2022-05-30 09:01:00 Marcus Guaman [facility] MR LUMBAR SPINE W WO 2022-05-29 16:13:00 Marcus Guaman [facility] CONTRAST [facility] MR CERVICAL SPINE W WO 2022-05-29 16:12:00 Marcus Guaman [facility] CONTRAST [facility] CT HEAD WO CONTRAST 2022-05-29 16:05:00 Avery Narayanan [facility] PHOSPHORUS 2022-05-29 08:18:00 [facility] 2022-05-29 08:18:00 [facility] THYROID STIMULATING 2022-05-29 08:18:00 Hestephanie [facility] HORMONE [facility] BASIC METABOLIC PANEL 2022-05-29 08:18:00 [facility] (NA, K, CL, CO2, GLUCOSE, Medica l Branch BUN, CREATININE, CA) LIPID PANEL ([id number])(TOTAL 2022-05-29 08:18:00 [facility] CHOLESTEROL, [facility] TRIGLYCERIDES, HDL) CBC WITH DIFF 2022-05-29 08:18:00 [facility] GLYCOSYLATED HEMOGLOBIN 2022-05-29 08:18:00 [facility] PHOSPHORUS 2022-05-29 01:01:00 [facility] MAGNESIUM 2022-05-29 01:01:00 [facility] FOLATE 2022-05-29 01:01:00 [facility] BASIC METABOLIC PANEL 2022-05-29 01:01:00 [facility] (NA, K, CL, CO2, GLUCOSE, Medica l Branch BUN, CREATININE, CA) URINALYSIS 2022-05-28 23:48:00 [facility] QFT TB2 MINUS NIL 2022-05-28 22:28:00 Singer [facility] SEDIMENTATION RATE 2022-05-28 22:28:[address] [facility] CBC WITH DIFF 2022-05-28 22:28:00 [facility] [place] [facility] QUANTIFERON-TB ASSAY 2022-05-28 22:28:00 Robel Perez [facility] CT THORAX WO CONTRAST 2022-05-28 22:13:50 [facility] VIT[facility] B12, LEVEL 2022-05-28 22:01:00 [facility]HE[facility] FA[facility] 2022-05-28 22:01:00 Rowena [facility] C-REACTIVE PROTEIN 2022-05-28 22:01:[address] [facility] FREE T4 2022-05-28 22:01:00 [facility] THYROID STIMULATING 2022-05-28 22:01:00 Rowena [facility] HORMONE [facility] Branch ANTI-NUCLEAR ANTIBODY 2022-05-28 22:01:00 [facility] SCREEN [facility] ANTI-NUCLEAR ANTIBODY 2022-05-28 22:01:00 [facility] TITER [facility] VITAMIN D, 25-OH 2022-05-28 22:01:00 stephanie [facility] LAB ONLY COVID 2022-05-28 17:50:00 Singer [facility] INTERPRETATION [facility] COVID-19 (ID NOW RAPID 2022-05-28 17:50:00 Singer [facility] TESTING) Medical Branch URINALYSIS 2022-05-28 15:48:00 Singer [facility] XR CHEST 1 VW 2022-05-28 15:04:15 [facility] COMP. METABOLIC PANEL 2022-05-28 14:44:00 Singer [facility] ([id number]) Medical Branch CBC WITH DIFF 2022-05-28 14:44:00 [facility] N-TERMINAL PRO-BNP 2022-05-28 14:44:00 [facility] HOSPITAL ADMISSION 2022-05-28 05:01:00 Doctor Unassuzair [facility] [place] Plan of Care Planned Activity Planned Date [...] colon Medical Ce nter (procedure) [code = 274912612] Future Scheduled 1955 Screening for malignant [facility] Test 00:00:00 neoplasm of breast Medical C enter (procedure) [code = 804151814] Future Scheduled 1954 CT Colonography (combo) [facility] Test 00:00:00 [code = CT Colonography [facility] (combo)] Future Scheduled 1954 Screening for malignant [facility] Test 00:00:00 neoplasm of colon Medical Ce nter (procedure) [code = 635162168] Future Scheduled 1954 Screening for malignant [facility] Test 00:00:00 neoplasm of colon Medical Ce nter (procedure) [code = 764812932] Future Scheduled 1955 DXA SCAN [code = DXA [facility] Test 00:00:00 SCAN] Medical Center Future Scheduled 1954 Screening for malignant [facility] Test 00:00:00 neoplasm of colon Medical Ce nter (procedure) [code = 342824715] Future Scheduled 1954 Screening for malignant [facility] Test 00:00:00 neoplasm of colon Medical Ce nter (procedure) [code = 682180329] Future Scheduled 1955 Sigmoidoscopy [code = [facility] S[facility]oscopy] Medical Cente r Future Scheduled 1954 Screening for malignant [facility] Test 00:00:00 neoplasm of colon Medical Ce nter (procedure) [code = 826689879] Future Scheduled 1955 Sigmoidoscopy [code = [facility] 00:00:00 Sigmoidoscopy] [facility] r Future Scheduled 1954 Screening for malignant [facility] Test 00:00:00 neoplasm of breast Medical C enter (procedure) [code = 575578181] Future Scheduled 1954 CT Colonography (combo) [facility] Test 00:00:00 [code = CT Colonography [facility] (combo)] Future Scheduled 1954 Screening for malignant [facility] Test 00:00:00 neoplasm of colon Medical Ce nter (procedure) [code = 721833398] Future Scheduled 1954 Screening for malignant [facility] Test 00:00:00 neoplasm of colon Medical Ce nter (procedure) [code = 877401542] Future Scheduled 1954 DXA SCAN [code = DXA [facility] Test 00:00:00 SCAN] [facility] Future Scheduled 1954 Screening for malignant [facility] Test 00:00:00 neoplasm of colon Medical Ce nter (procedure) [code = 288362220] Future Scheduled 1954 Screening for malignant [facility] Test 00:00:00 neoplasm of colon Medical Ce nter (procedure) [code = 897149173] Future Scheduled 1955 Sigmoidoscopy [code = [facility]:00 Sigm[facility]oscopy] [facility] Karie r Future Scheduled 1954 Screening for malignant [facility] Test 00:00:00 neoplasm of breast Medical C enter (procedure) [code = 124751254] Future Scheduled 1954 CT Colonography (combo) [facility] Test 00:00:00 [code = CT Colonography [facility] (combo)] Future Scheduled 1954 Screening for malignant [facility] Test 00:00:00 neoplasm of colon Medical Ce nter (procedure) [code = 793820064] Future Scheduled 1954 Screening for malignant [facility] Test 00:00:00 neoplasm of colon Medical Ce nter (procedure) [code = 052201233] Future Scheduled 1955 DXA SCAN [code = DXA [facility] Test 00:00:00 SCAN] Medical Center Encounters Start End Encounter Admission Attending Care Care Encounter Source Date/Time Date/Time Type Type Clinicians Facility Department ID 2022-10-13 Outpatient Proctor, STLMLC [facility] [id number] Common 13:53:[id number] [facility] 2022-10-10 Outpatient Proctor, STLMLC [facility] [id number] Common 09:59:[id number] [facility] 2022-07-17 [facility] [id number] Common 16:18:[id number] [facility] 2022-06-05 [facility] [id number] Common 10:23:[id number] [facility] 2022-06-03 [facility] [id number] Common 14:46:[id number] [facility] 2022-10-03 2022-10-03 Office Dima Veras [facility] [id number] 09:00:00 10:00:00 Visit [facility] 2022-09-30 2022-09-30 Outpatient [facility] [id number] [facility] 05:34:00 05:34:00 Nixon 62 [facility] 2022-09-26 2022-09-26 [facility] [id number] 00:[facility] 00:00:00 ion Elizabeth [facility] 2022-09-26 2022-09-26 [facility] [id number] 00:00:00 00:00:00 ion Elizabeth [facility] 2022-07-10 2022-07-10 Telephone Proctor, JOB [id number] [facility] 00:00:00 00:00:00 Sam M Y HEALTH 350.1.13.10 ity of CL[place] 4[place].2.[id number] [id number] Branch 2022-07-07 2022-07-07 Letter [facility] [id number] Univers 00:00:00 00:00:00 (Out) [facility] HEALTH 350.1.13.10 ity of CL[place]ICS 4[place]2.[place].2.[place] [id number] [place] [address] Branch 2022-07-02 2022-07-02 Letter [facility] [id number] Univers 00:00:00 00:00:00 (Out) [facility] HEALTH 350.1.13.10 ity of CL[place]ICS 4.[place].2.[place] [id number] [place] [id number] Branch 2022-06-25 2022-06-25 [facility] [id number] Univers 00:00:00 00:00:00 (Out) [facility] HEALTH 350.1.13.10 ity of CL[place]ICS 4.2.[place].2.[place] [id number] [place] [id number] Branch 2022-06-02 2022-06-02 Transition KYLE HooverCarson [id number] Univers 00:00:00 00:00:00 of Care Any DOMINGUEZ 350.1.13.10 it y of [place] [id number] [place] [id number] Branch 2022-05-28 2022-05-30 Inpatient U [facility] [id number] Univers 09:01:00 17:30:00 AVERY lomeli [facility] 2022-05-28 2022-05-30 [facility] Robel Perez [facility] [id number] Univers 09:01:00 17:30:00 [facility]counter [facility] 350.1.13.10 ity of Avery Narayanan 4.2.7.2.686 [place] [id number] ([facility]) 2022-05-28 2022-05-30 Inpatient U [facility] [id number] Univers 09:01:00 17:30:00 AVERY coelho yani [facility] Results Test Description Test Time Test Comments Results Result Comments Source - XR CHEST 2 V 2022-09-27 00:00:00 [facility] : 1955 Sex: F FAX: Gustavo Cummins MD [phone] [place]: St: PRE FAX: Nixon Garcia MD [phone] Name: ASIF REAL [facility] : 1955 Age/S: 67/F [address] [place] [address] Unit #: [id number] Loc: [place] [address] Phys: Nixon Lorenzo MD Acct: [id number] Dis Date: Status: PRE [facility] PHONE #: [phone] Exam Date: 09/26/2022 173 FAX #: [phone] Reason: PREOP EXAMS: CPT CODE: [id number] XR CHEST 2 V 06678 PROCEDURE INFORMATION: Exam: XR Chest Exam date [...] Proctor MD; Nixon Lorenzo MD Technologist: RT Bethany(R) Trnscrd Date/Time/By: 09/27/2022 (717) : By: AliceGGG [...] REQUIRED (test code = MDIFF) NO PROTHROMBIN [id number] 17:03:00 Test Item Value Reference Range Interpretation [...] risk), 2. 5 - 3.5 Presence of Lup us Anticoagulant o r Antiphospholipi d Antibodies, Pre vention of systemic emb olism - Acute Myocardia l Infarction (to prevent recurrent infar ct). BASIC METABOLIC [id number] 17:00:00 Test Item Value Reference Range Interpretation [...] the recommended for louisa for GFRby the Natio nal Kidney Foundati on for Adults.The GFR will not calculate if th e sex is unknown or if thepatient's ag e is <18 years. CREATININE (test 0.7 mg/dL 0.6-1.3 N code = CREAT) CALCIUM (test code = 8.4 mg/dL 8.0-10.5 N CA) N-TERMINAL [id number] 15:33:43 Test Item Value Reference Range Interpretation Comments NT-proBNP (test code = 746 pg/mL <=125 H [id number]) BRIAN (test code = BRIAN) Biotin has been reported to cause a negative bias, interpret results relative to patient's use of biotin. Lab Interpretation (test Abnormal code = 81798-1) [facility] [place] [facility]. METABOLIC PANEL ([id number])2022-05-28 15:26:24 Test Item Value Reference Range Interpretation Comments NA (test code = 134 mmol/L 135-145 L 0150604117) K (test code = 4.7 mmol/L 3.5-5.0 8090390963) CL (test code = 104 mmol/L 98-108 6918369569) CO2 TOTAL (test code = 24 mmol/L 23-31 2627482423) AGAP (test code = 6 2-16 5935372592) BUN (test code = 11 mg/dL 7-23 3201766437) GLUCOSE (test code = 124 mg/dL 70-110 H 5936017700) CREATININE (test code = 0.49 mg/dL 0.50-1.04 L 6025579733) TOTAL BILI (test code = 1.5 mg/dL 0.1-1.1 H 0445503951) CALCIUM (test code = 8.2 mg/dL 8.6-10.6 L 5084313753) T PROTEIN (test code = 7.3 g/dL 6.3-8.2 0087418717) ALBUMIN (test code = 3.2 g/dL 3.5-5.0 L 4169186125) ALK PHOS (test code = 102 U/L 34-122 0896832290) ALTv (test code = 77 U/L 5-35 H 1742-6) AST(SGOT) (test code = 123 U/L 13-40 H 8411165796) eGFR (test code = 125.6 mL/min/1.73m2 5310487084) BRIAN (test code = BRIAN) Association of [...] tests). Lab Interpretation Abnormal (test code = 66877-6) [facility] WITH [id number] 15:14:03 Test Item Value Reference Range Interpretation Comments WBC (test code = 11.30 See_Comment H [Automated 2533-2) message] The sy stem which generated this result transmitted reference range : 4.30 - 11.10 10*3/?L. The reference range was not used to interpret this result as normal/abnormal . RBC (test code = 4.59 See_Comment [Automated 589-8) message] The sy stem which generated this [...] RDW-SD (test code = 49.5 fL 39.0-49.9 47645-1) RDW-CV (test code = 14.4 % 12.0-15.5 788-0) PLT (test code = 157 See_Comment L [Automated 007-3) message] The sy stem which generated this result transmitted reference range : 166 - 358 10*3/ ?L. The reference r gonzalo was not used to interpret this result as normal/abnormal . MPV (test code = 10.9 fL 9.5-12.9 77053-1) NRBC/100 WBC (test 0.0 See_Comment [Automat ed code = [id number]) message] The system which generated this result transmitted reference range : 0.0 - 10.0 /100 WBCs. The refer ence range was not u sed to interpret th is result as normal/abnormal . NRBC x10^3 (test code See_Comment [Auto mated = [id number]) message] The s ystem which generated this result transmitted reference range : 10*3/?L. The reference range was not used to interpret this result as normal/abnormal . GRAN MAT (NEUT) % 63.2 % (test code = 770-8) IMM GRAN % (test code 0.40 % = 4933353773) LYMPH % (test code = 23.2 % 736-9) MONO % (test code = 9.9 % 5905-5) EOS % (test code = 2.3 % 713-8) BASO % (test code = 1.0 % 706-2) GRAN MAT x10^3(ANC) 7.15 10*3/uL 1.88-7.09 H (test code = 7371938196) IMM GRAN x10^3 (test 0.04 10*3/uL 0.00-0.06 code = 0320199093) LYMPH x10^3 (test code 2.62 10*3/uL 1.32-3.29 = 731-0) MONO x10^3 (test code 1.12 10*3/uL 0.33-0.92 H = 742-7) EOS x10^3 (test code = 0.26 10*3/uL 0.03-0.39 711-2) BASO x10^3 (test code 0.11 10*3/uL 0.01-0.07 H = 704-7) Lab Interpretation Abnormal (test code = 18879-9) [facility] Notes Date/Time Note Provider Source 2022-09-26 16:13:00-00:00 [id number] [address] PATIENT NAME: ASIF REAL ADMIT DATE: ACCOUNT NO: [id number] ROOM NO: AGE: 67 REPORT TYPE: eELECTROCARDIOGRAM REPORT SEX: F ADMITTING PHYSICIAN: ATTENDING PHYSICIAN:Nixon Lorenzo MD Order: [id number] Test Reason : PREOP Test Date/Time Stamp: [...] ECG No previous ECGs available Confirmed by JUAN KHAN MD ([id number]) on 09/27/19 4:54:43 PM Referred By: Nixon Lorenzo Confirmed by:JUAN SALAMANCA MD Electronically Signed by Juan Khan MD on at [id number] PATIENT NAME: ASIF REAL 61"
[2022-10-13 17:56] LABS: Protime INR 1.05
--- NOTE | 2022-10-13 17:59 | RAD REPORT ---
EXAM DESCRIPTION: RAD - Chest Single View - 10/13/2022 5:49 pm CLINICAL HISTORY: ABDOMINAL DISTENTION Chest pain. COMPARISON: Chest Pa And Lat (2 Views) dated 08/13/2022 FINDINGS: Portable technique limits examination quality. The lungs are grossly clear. The heart is normal in size. Mildly tortuous thoracic aorta. No displace d fractures. IMPRESSION: No acute intrathoracic process suspected.
[2022-10-13 18:02] LABS: Absolute Lymphocytes (CBC) 2.2 K/uL (0.7-4.9); Lymphocytes % 26.1 % (15.3-44.8); MCV 94.7 fL (80-100); MPV 8.7 fL (7.6-11.3); Platelets 170 thou/uL (152-406); RBC Red Blood Cell Count 4.23 M/uL (3.86-4.86)
[2022-10-13 18:11] LABS: Albumin 2.8 g/dL (3.4-5.0); Bilirubin Direct 0.2 mg/dL (0-0.2); Bilirubin Indirect, Calculated 0.4 mg/dL (0.2-0.8); Bilirubin Total 0.6 mg/dL (0.2-1.0); Magnesium 1.8 mg/dL (1.6-2.4); Potassium 3.3 mEq/L (3.5-5.1); Protein, Total 7.4 g/dL (6.4-8.2); Troponin High Sensitivity 7.4 pg/mL (<58.9)
--- NOTE | 2022-10-13 19:07 | ER ---
Nurse's Notes [facility] Name: Shantal Real Age: 67 yrs Sex: Female : 1955 Arrival Date: 10/13/2022 Time: 14:46 Bed 10 Private MD: Diagnosis: Other cirrhosis of liver;Dyspnea, unspecified Presentation: 10/13 15:09 Chief complaint: Patient states: "My stomach has been really swollen and i'm having SOB mb9 when walking. I just had a paracentesis on 09/22/22. I just have a lot of pressure from the stomach and it's making me have a hard time breathing". Coronavirus screen: Vaccine status: Patient reports receiving the 2nd dose of the covid vaccine. Ebola Screen: No symptoms or risks identified at this time. Initial Sepsis Screen: Does the patient meet any 2 criteria? No. Patient's initial sepsis screen is negative. Does the patient have a suspected source of infection? No. Patient's initial sepsis screen is negative. Risk Assessment: Do you want to hurt yourself or someone else? Patient reports no desire to harm self or others. Onset of symptoms was October 13, 2022. 15:09 Method Of Arrival: Ambulatory mb9 15:09 Acuity: ELIZA 3 mb9 Triage Assessment: 15:12 General: Appears uncomfortable, Behavior is calm, cooperative. Pain: Complains of pain mb9 in abdomen Pain radiates to chest Pain currently is 10 out of 10 on a pain scale. Quality of pain is described as pressure, Pain began gradually, Is continuous. Neuro: Weaver Agitation-Sedation Scale (RASS): 0 - Alert and Calm Level of Consciousness is awake, alert, obeys commands, Oriented to person, place, time, situation, Appropriate for age. Cardiovascular: Patient's skin is warm and dry. Respiratory: Reports shortness of breath Airway is patent Respiratory effort is even, unlabored, Respiratory pattern is regular, symmetrical. GI: Abdomen is round distended. 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 - Social history:: Smoking status: Patient denies any tobacco usage or history of. Screenin:13 [facility] ED Fall Risk Assessment (Adult) History of falling in the last 3 months, me1 including since admission No falls in past 3 months (0 pts) Confusion or Disorientation No (0 pts) Intoxicated or Sedated No (0 pts) Impaired Gait Yes (1 pt) Mobility Assist Device Used Yes (1 pt) Altered Elimination No (0 pt) Score/Fall Risk Level 0 - 2 = Low Risk. Abuse screen: Denies threats or abuse. Nutritional screening: No deficits noted. Tuberculosis screening: No symptoms or risk factors identified. Assessment: 21:18 General: Appears uncomfortable, Behavior is calm, cooperative, appropriate for age, me1 Reports abdomen is swollen, SOB with exertion. Had a paracentesis on 09/22/22. Denies fever, feeling ill, fatigue, chills. Pain: Denies pain. Pain: Denies pain. Neuro: Level of Consciousness is awake, alert, obeys commands, Oriented to person, place, time, situation, Appropriate for age. Cardiovascular: Capillary refill < 3 seconds Patient's skin is warm and dry. Respiratory: Airway is patent Respiratory effort is even, unlabored, Respiratory pattern is regular, symmetrical. GI: Abdomen is distended. Vital Signs: 15:09 Pulse 87; Resp 20; Temp 97.9; Pulse Ox 93% on R/A; Weight 44.91 kg; Height 4 ft. 10 in. mb9 ; 15:12 BP 160 / 94; mb9 21:20 BP 139 / 74; Pulse 89; Resp 19; Pulse Ox 95% on R/A; me1 15:09 Body Mass Index 20.69 (44.91 kg, 147.32 cm) mb9 ED Course: 14:49 Patient arrived in ED. mg5 14:57 Mahendra Kaufman PA is PHCP. cp 14:57 Jag Bautista MD is Attending Physician. cp 15:09 Arm band placed on. mb9 15:11 Triage completed. mb9 15:21 EKG done, by ED staff, reviewed by Mahendra MCLEOD. mb9 17:34 Inserted saline lock: 24 gauge in right forearm, using aseptic technique. Blood ds4 collected. 17:51 XRAY Chest (1 view) In Process Unspecified. EDMS 19:05 Ranjeet Basurto MD is Hospitalizing Provider. cp 19:31 Abdomen Exam Limited In Process Unspecified. EDMS 20:01 Samina Jenkins, RN is Primary Nurse. me1 21:13 Patient has correct armband on for positive identification. Bed in low position. Call me1 light in reach. Side rails up X2. Provided Education on: POC. Verbalized understanding. . Client placed on continuous cardiac and pulse oximetry monitoring. NIBP monitoring applied. pvc monitor on. 21:13 No provider procedures requiring assistance completed. Flushed. Patient maintains SpO2 me1 saturation greater than 95% on room air. 21:18 Flushed. me1 Administered Medications: No medications were administered Medication: 21:14 VIS not applicable for this client. me1 Outcome: 19:07 Decision to Hospitalize by Provider. cp 21:23 Admitted to Med/surg me1 21:23 Condition: stable 21:23 Instructed on the need for admit. 21:24 Admitted to Med/surg accompanied by nurse, via wheelchair, room 205, Report called to mo1 report given to [place] per Jeremy Rajan. Ok to send patient up now. 21:26 Patient left the ED. me1 Signatures: Dispatcher [employer] EDMS Yony Rosales ds4 Mahendra Kaufman PA PA cp Chitra Fernandez, RN RN mb9 Samina Jenkins, RN RN me1 Delphine Flynn mg5
--- NOTE | 2022-10-13 19:07 | EDPHYS ---
Physician Documentation [facility] Name: Shantal Real Age: 67 yrs Sex: Female : 1955 Arrival Date: 10/13/2022 Time: 14:46 Bed 10 Private MD: ED Physician Jag Bautista HPI: 10/13 16:15 This 67 yrs old Female presents to ER via Ambulatory with complaints of Chest Pain, cp Chest Pressure, Abdominal Swelling, Breathing Difficulty. 16:15 The patient presents with abdominal pain that is diffuse, abdominal distention that is cp diffuse. Onset: The symptoms/episode began/occurred gradually. 16:15 Associated signs and symptoms: Pertinent positives: chest pain, shortness of breath, cp Pertinent negatives: constipation, diarrhea, fever, vomiting. The symptoms are described as constant. 16:15 Modifying factors: the symptoms are aggravated by walking. 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 - Social history:: Smoking status: Patient denies any tobacco usage or history of. ROS: 16:20 Constitutional: Negative for body aches, chills, fever, poor PO intake. cp 16:20 Eyes: Negative for injury, pain, redness, and discharge. cp 16:20 ENT: Negative for drainage from ear(s), ear pain, sore throat, difficulty swallowing, difficulty handling secretions. 16:20 Cardiovascular: Negative for chest pain, palpitations. 16:20 Respiratory: Positive for shortness of breath, at rest. Negative for cough, wheezing. 16:20 Abdomen/GI: Positive for abdominal pain, abdominal distension, Negative for vomiting, diarrhea, constipation. 16:20 Neuro: Negative for altered mental status, dizziness, headache, weakness. 16:20 All other systems are negative. Exam: 15:25 ECG was reviewed by the Attending Physician. cp 16:25 Constitutional: The patient appears in no acute distress, alert, awake, cp non-diaphoretic, non-toxic, well developed, well nourished, uncomfortable. 16:25 Head/Face: Normocephalic, atraumatic. cp 16:25 Eyes: Periorbital structures: appear normal, Conjunctiva: normal, no exudate, no injection, Sclera: no appreciated abnormality, Lids and lashes: appear normal, bilaterally. 16:25 ENT: External ear(s): are unremarkable, Nose: is normal, Mouth: Lips: moist, Oral mucosa: pink and intact, moist, Posterior pharynx: is normal, airway is patent, no erythema, no exudate. 16:25 Neck: ROM/movement: is normal, is supple, without pain, no range of motions limitations. 16:25 Chest/axilla: Inspection: normal. 16:25 Cardiovascular: Rate: normal, Rhythm: regular, Edema: is not appreciated, JVD: is not appreciated. 16:25 Respiratory: the patient does not display signs of respiratory distress, Respirations: shallow respirations, that is mild, Breath sounds: are clear throughout, no decreased breath sounds, no stridor, no wheezing. 16:25 Abdomen/GI: Inspection: distension, that is severe, Bowel sounds: active, all quadrants, Palpation: soft, in all quadrants, mild abdominal tenderness, in all quadrants, rebound tenderness, is not appreciated, involuntary guarding, is not appreciated. 16:25 Back: CVA tenderness, is absent. 16:25 Skin: cellulitis, is not appreciated, no rash present. 16:25 Neuro: Orientation: to person, place \T\ time. Mentation: is normal, Motor: moves all fours, strength is normal, Sensation: is normal. Vital Signs: 15:09 Pulse 87; Resp 20; Temp 97.9; Pulse Ox 93% on R/A; Weight 44.91 kg; Height 4 ft. 10 in. mb9 ; 15:12 BP 160 / 94; mb9 21:20 BP 139 / 74; Pulse 89; Resp 19; Pulse Ox 95% on R/A; me1 15:09 Body Mass Index 20.69 (44.91 kg, 147.32 cm) mb9 MDM: 15:17 Patient medically screened. cp 19:10 Data reviewed: vital signs, nurses notes, lab test result(s), EKG, radiologic studies, cp plain films. 19:10 Management of patient was discussed with the following: Hospitalist: Jeremy Rajan NP cp will accept admission after discussion. Test considered but Not performed: CT: abdomen/pelvis. Care significantly affected by the following chronic conditions: Liver Disease. Counseling: I had a detailed discussion with the patient and/or guardian regarding the historical points, exam findings, and any diagnostic results supporting the discharge/admit diagnosis, lab results, radiology results, the need for further work-up and treatment in the hospital. 10/13 16:02 Order name: Basic Metabolic Panel; Complete Time: 18:28 cp 10/13 18:28 Interpretation: Normal except: NA 135; K 3.3; GLUC 205; GFR 80; CA 7.7. cp 10/13 16:02 Order name: CBC with Diff; Complete Time: 18:04 cp 10/13 18:04 Interpretation: Normal except: EOSINOPHIL % 6.0; BASO% 2.6. cp 10/13 16:02 Order name: LFT's; Complete Time: 18:28 cp 10/13 16:02 Order name: Magnesium; Complete Time: 18:28 cp 10/13 16:02 Order name: NT PRO-BNP; Complete Time: 18:28 cp 10/13 16:02 Order name: PT-INR; Complete Time: 18:04 cp 10/13 16:02 Order name: Troponin HS; Complete Time: 18:28 cp 10/13 16:02 Order name: XRAY Chest (1 view); Complete Time: 18:04 cp 10/13 19:11 Order name: Abdomen Exam Limited; Complete Time: 19:36 EDMS 10/13 16:02 Order name: EKG; Complete Time: 16:02 cp 10/13 16:02 Order name: EKG - Nurse/Tech; Complete Time: 17:34 cp 10/13 16:02 Order name: IV Saline Lock; Complete Time: 17:34 cp 10/13 16:02 Order name: Labs collected and sent; Complete Time: 17:34 cp 10/13 16:02 Order name: O2 Per Protocol; Complete Time: 17:34 cp 10/13 16:02 Order name: O2 Sat Monitoring; Complete Time: 17:34 cp EC:25 Rate is 81 beats/min. Rhythm is regular. MT interval is normal. QRS interval is normal. cp QT interval is normal. T waves are Inverted in lead aVR. Interpreted by me. Reviewed by me. Administered Medications: No medications were administered Disposition Summary: 10/13/22 19:07 Hospitalization Ordered Hospitalization Status: Observation cp Provider: Ranjeet Basurto cp Location: Telemetry/MedSurg (observation) cp Condition: Stable cp Problem: an ongoing problem cp Symptoms: are unchanged cp Bed/Room Type: Standard cp Room Assignment: 205(10/13/22 20:35) mw Diagnosis - Other cirrhosis of liver cp - Dyspnea, unspecified cp Forms: - Medication Reconciliation Form cp - SBAR form cp - Leadership Thank You Letter cp Signatures: Dispatcher [employer] EDMS Taylor Turcios RN RN mw Jeremy Rajan, CARGO SERVICE SUPERVISOR-C CARGO SERVICE SUPERVISOR-Cla1 Mahendra Kaufman PA PA cp Breneman, Mary Beth RN RN mb9 Corrections: (The following items were deleted from the chart) 19:11 19:05 Abdomen Complete+US.RAD.BRZ ordered. EDLA EDMS 20:35 19:07 cp mw
--- NOTE | 2022-10-13 19:35 | RAD REPORT ---
EXAM DESCRIPTION: US - Abdomen Exam Limited - 10/13/2022 7:29 pm CLINICAL HISTORY: ABDOMINAL DISTENTION COMPARISON: Abdomen Exam Complete dated 09/17/2022 FINDINGS: Moderate ascites is present.
[2022-10-13] MEDS ORDERED: ONDANSETRON 4 MG/2 ML VIAL IV PRN (21:30)
--- NOTE | 2022-10-13 22:01 | P.HP ---
Certification for Inpatient Patient admitted to: Observation With expected LOS: <2 Midnights Patient will require the following post-hospital care: None Practitioner: I am a practitioner with admitting privileges, knowledge of patient current condition, hospital course, and medical plan of care. Services: Services provided to patient in accordance with Admission requirements found in Title 42 Section 412.3 of the Code of Federal Regulations Patient History Date of Service: 10/13/22 Reason for admission: Ascites History of Present Illness: 67-year-old female with history of hepatitis C diagnosed in May of this year, cirrhosis of liver presents emergency department with abdominal swelling, shortness of breath. Her first and most recent paracentesis was September 22, she has been reaccumulating ascites since then but is now tense and affecting her breathing which is what she came to the hospital for. Her labs are significant for sodium 135 potassium 3.3 glucose 205 BNP 1263 abdominal ultrasound was performed which revealed moderate ascites, LFTs within normal limits at this time. She is admitted for therapeutic paracentesis. Allergies No Known Allergies Allergy (Verified 09/22/22 08:57) Home Medications: Furosemide [Lasix] 40 mg PO DAILY 08/13/22 Gabapentin 300 mg PO TID 08/13/22 Potassium Chloride [Klor-Con M20] 20 meq PO DAILY 08/13/22 Sertraline [Zoloft] 50 mg PO DAILY 08/13/22 Sofosbuvir/Velpatasvir [Epclusa 400 mg-100 mg Tablet] 1 each PO DAILY 09/22/22 Aspirin 81 mg PO 10/01/22 - Past Medical/Surgical History -: Hepatitis C -: Hypertension Psychosocial/ Personal History: Patient lives at home with her daughter - Family History Family History: Reviewed- Non-Contributory - Social History Smoking Status: Never smoker Alcohol use: No CD- Drugs: No Caffeine use: Yes Place of Residence: Home Review of Systems 10-point ROS is otherwise unremarkable Respiratory: Shortness of Breath Gastrointestinal: Other (Abdominal swelling) Physical Examination - Physical Exam General: Alert, In no apparent distress, Oriented x3 HEENT: Atraumatic, PERRLA, Mucous membr. moist/pink, EOMI, Sclerae nonicteric Neck: Supple, 2+ carotid pulse no bruit, No LAD, Without JVD or thyroid abnormality Respiratory: Clear to auscultation bilaterally, Normal air movement Cardiovascular: Regular rate/rhythm, Normal S1 S2 Capillary refill: <2 Seconds Gastrointestinal: Normal bowel sounds, Succussion splash, Ascites (Tense ascites) Musculoskeletal: No tenderness Integumentary: No rashes Neurological: Normal gait, Normal speech, Normal strength at 5/5 x4 extr, Normal tone, Normal affect Lymphatics: No axilla or inguinal lymphadenopathy - Studies Laboratory Data (last 24 hrs) 10/13/22 10/13/22 10/13/22 17:25 17:25 17:25 WBC 8.40 Hgb 13.2 Hct 40.0 Plt Count 170 PT 11.5 INR 1.05 Sodium 135 L Potassium 3.3 L BUN 11 Creatinine 0.80 Glucose 205 H Magnesium 1.8 Total Bilirubin 0.6 AST 32 ALT 25 Alkaline Phosphatase 99 Assessment and Plan - Plan Assessment: Tense ascites secondary to cirrhosis liver/hepatitis C Hyperglycemia Plan: Tense ascites secondary to cirrhosis liver/hepatitis C Will arrange for therapeutic paracentesis given shortness of breath, tense ascites. LFTs within normal limits at this time. Will need follow-up with GI outpatient. Hyperglycemia A1c the morning, no known diabetes. DVT PPX: SCD Code status: Full Discharge Plan: Home Plan to discharge in: 24 Hours - Advance Directives Does patient have a Living Will: No Does patient have a Durable POA for Healthcare: No - Code Status/Comfort Care Code Status Assessed: Yes (Full code) Critical Care: No Time Spent Managing Pts Care (In Minutes): 55
[2022-10-13] MEDS ORDERED: MORPHINE 2 MG/ML SYR IV PRN (22:18)
[2022-10-13] MEDS: GABAPENTIN 300 MG CAP PO SCH (23:19)
[2022-10-14 00:50] VITALS: BMI 21.5
[2022-10-14 04:23] LABS: Absolute Lymphocytes (CBC) 2.1 K/uL (0.7-4.9); Hematocrit 37.3 % (36.0-45.0); Lymphocytes % 23.9 % (15.3-44.8); MPV 8.6 fL (7.6-11.3); Platelets 172 thou/uL (152-406); RBC Red Blood Cell Count 3.97 M/uL (3.86-4.86)
[2022-10-14 04:27] LABS: Protime INR 1.06
[2022-10-14 04:41] LABS: Albumin 2.6 g/dL (3.4-5.0); Bilirubin Total 0.5 mg/dL (0.2-1.0); Potassium 3.6 mEq/L (3.5-5.1); Protein, Total 6.7 g/dL (6.4-8.2)
--- NOTE | 2022-10-14 06:50 | P.PN ---
Date of Service: 10/14/22 Subjective: Feeling better today 2.6L removed via paracentesis has been compliant with home medications no new / worsening problems ROS: 10 point ROS as noted above, otherwise negative Physical Exam: GEN: Alert, oriented, NAD HEENT: Normal conjunctiva, sclera anicteric CV: Regular rate and rhythm, no edema Pulm: Nonlabored respirations on room air ABD: Soft, Succussion splash, Tense ascites MSK: No joint tenderness Integumentary: No rashes Neuro: Normal speech, normal affect vitals reviewed Problem List: Tense ascites secondary to cirrhosis liver/hepatitis C Hyperglycemia Tense ascites secondary to cirrhosis liver/hepatitis C abdominal u/s (10/14): Moderate ascites s/p therapeutic paracentesis 2.6L removed LFTs within normal limits at this time. will need f/u with GI as outpatient. Hyperglycemia no prior hx of diabetes A1c pending VTE: SCD Code: Full Dispo: Home
[2022-10-14 08:53] VITALS: O2SAT 93
[2022-10-14] MEDS ORDERED: FUROSEMIDE 40 MG TABLET PO SCH (09:00)
[2022-10-14] MEDS ORDERED: VELPATASVIR PO SCH (09:00)
[2022-10-14] MEDS ORDERED: SOFOSBUVIR PO SCH (09:00)
[2022-10-14] MEDS ORDERED: SPIRONOLACTONE 25 MG TABLET PO SCH (09:00)
[2022-10-14] MEDS: GABAPENTIN 300 MG CAP PO SCH ×2 (09:52→13:35)
--- NOTE | 2022-10-14 11:38 | RAD REPORT ---
EXAM DESCRIPTION: US - Paracentesis Proc Guidance - 10/14/2022 8:45 am CLINICAL HISTORY: Liver disease with ascites FINDINGS: The risks, benefits and alternatives to the procedure were explained to the patient and in formed consent obtained. The skin and deeper tissues were anesthetized with Lidocaine. Under sonographic guidance an 8 Kosovan catheter was placed into the right lower quadrant. 2.6 liters of yellow fluid removed. Fluid sent to the lab. The patient experienced no immediate complication. IMPRESSION: Paracentesis
[2022-10-14 12:51] VITALS: BP 124/57; TEMP 97.4
[2022-10-14 13:27] LABS: Body Fluid Source PERITONEAL; Color of fluid Yellow (COLORLESS)
[2022-10-14 13:28] LABS: Appearance CLEAR (CLEAR); Body Fluid WBC 121 /mm^3
--- NOTE | 2022-10-14 13:42 | P.DS ---
Admission Date: 10/13/22 Discharge Date: 10/14/22 Disposition: ROUTINE DISCHARGE Discharge Condition: GOOD Reason for Admission: Ascites Brief History of Present Illness: 67yo F, PMH: hepatitis C diagnosed in May of this year, cirrhosis of liver Patient presents emergency department with abdominal swelling, shortness of breath. Her first and most recent paracentesis was September 22, she has been reaccumulating ascites since then but is now tense and affecting her breathing which is what she came to the hospital for. Her labs are significant for sodium 135 potassium 3.3 glucose 205 BNP 1263 abdominal ultrasound was performed which revealed moderate ascites, LFTs within normal limits at this time. Hospital Course: Problem List: Tense ascites secondary to cirrhosis liver / hepatitis C, now s/p therapeutic paracentesis 10/14 Hyperglycemia Patient presented with abdominal swelling, shortness of breath. Abdominal u/s noted moderate ascites. Patient underwent paracentesis and had 2.6L removed. Patient remained afebrile without leukocytosis during hospitalization. Patient was feeling better, abdominal pain improved, breathing more comfortably on room air, and was deemed stable for discharge home. Continue home medications as previously prescribed. 25mg Spironolactone was added to help keep fluid off. In addition to lasix. Monitor blood pressure and hold medication if blood pressure is lower than 100 systolic / feel dizzy/lightheaded. Follow up: PCP 3-5 days GI as previously planned tomorrow. Physical Exam: GEN: Alert, oriented, NAD HEENT: Normal conjunctiva, sclera anicteric CV: Regular rate and rhythm, no edema Pulm: Nonlabored respirations on room air; slightly diminished at bases bilaterally ABD: Soft, mild discomfort on deep palpation, no rebound tenderness, s/p paracentesis Neuro: Normal speech, normal affect Vital Signs/Physical Exam: Temp Pulse Resp BP Pulse Ox 97.4 F 87 16 124/57 L 93 10/14/22 12:00 10/14/22 12:00 10/14/22 12:00 10/14/22 12:00 10/14/22 12:00 Laboratory Data at Discharge: WBC 8.70 thou/uL (4.3-10.9) 10/14/22 03:55 Hgb 12.6 g/dL (12.0-15.0) 10/14/22 03:55 Hct 37.3 % (36.0-45.0) 10/14/22 03:55 Plt Count 172 thou/uL (152-406) 10/14/22 03:55 PT 11.7 SECONDS (9.5-12.5) 10/14/22 03:55 INR 1.06 10/14/22 03:55 Sodium 139 mEq/L (136-145) 10/14/22 03:55 Potassium 3.6 mEq/L (3.5-5.1) 10/14/22 03:55 BUN 12 mg/dL (7-18) 10/14/22 03:55 Creatinine 0.74 mg/dL (0.55-1.02) 10/14/22 03:55 Glucose 116 mg/dL (74-106) H 10/14/22 03:55 Magnesium 1.8 mg/dL (1.6-2.4) 10/13/22 17:25 Total Bilirubin 0.5 mg/dL (0.2-1.0) 10/14/22 03:55 AST 27 U/L (15-37) 10/14/22 03:55 ALT 22 U/L (13-56) 10/14/22 03:55 Alkaline Phosphatase 109 U/L (45-117) 10/14/22 03:55 Home Medications: Furosemide [Lasix*] 40 mg PO DAILY 08/13/22 Gabapentin 300 mg PO TID 08/13/22 Potassium Chloride [Klor-Con M20] 20 meq PO DAILY 08/13/22 Sertraline [Zoloft*] 50 mg PO BEDTIME 08/13/22 Sofosbuvir/Velpatasvir [Epclusa 400 mg-100 mg Tablet] 1 each PO DAILY 09/22/22 Aspirin 81 mg PO DAILY 10/01/22 Spironolactone [Aldactone*] 25 mg PO DAILY 30 Days #30 tab 10/14/22 New Medications: Spironolactone [Aldactone*] 25 mg PO DAILY 30 Days #30 tab Physician Discharge Instructions: Patient presented with abdominal swelling, shortness of breath. Abdominal u/s noted moderate ascites. Patient underwent paracentesis and had 2.6L removed. Patient remained afebrile without leukocytosis during hospitalization. Patient was feeling better, abdominal pain improved, breathing more comfortably on room air, and was deemed stable for discharge home. Continue home medications as previously prescribed. 25mg Spironolactone was added to help keep fluid off. In addition to lasix. Monitor blood pressure and hold medication if blood pressure is lower than 100 systolic / feel dizzy/lightheaded. Follow up: PCP 3-5 days GI as previously planned tomorrow. Followup: Sam Proctor, DO [Primary Care Provider] - Time spent managing pt's care (in minutes): 45
--- NOTE | 2022-10-14 16:30 | EKG ---
Test Date: 2022-10-13 Test Time: 15:18:38 Food Beverage Server: MB MEASUREMENT RESULTS: Intervals: Rate: 81 CO: 144 QRSD: 58 QT: 382 QTc: 443 [place]: P: 41 CO: 144 QRS: 13 T: 28 INTERPRETIVE STATEMENTS: Sinus rhythm with premature atrial complexes Anterior infarct, age undetermined Abnormal ECG Compared to ECG 09/30/2022 23:42:48 Atrial premature complex(es) now present Myocardial infarct finding now present Sinus tachycardia no longer present Electronically Signed On 10-14-22 16:26:41 CDT by Nixon Lorenzo
[2022-10-14] MEDS ORDERED: SERTRALINE HCL 50 MG TAB PO SCH (21:00)
== END 2022-10-14 14:08 | disposition home or self-care (01) ==
LOC: ER 14:46 → 2ND 20:28
PROVIDERS: ADMIT Hospitalist; ATTEND Hospitalist
DX: R18.8 Other ascites (principal); K74.60 Unspecified cirrhosis of liver; B19.20 Unspecified viral hepatitis C without hepatic coma; I10 Essential (primary) hypertension; R73.9 Hyperglycemia, unspecified; R06.02 Shortness of breath
CPT/HCPCS: 93005; 85025 ×2; 80048; 36415; 89050; 83735; 84157; 85610 ×2; 80076; 83036; 84484; 80053; 82042; 83880; 71045; 76705; 49083; 99285; J2270; G0378

== ENCOUNTER 2022-11-04 08:17 | Day surgery (SDC) | payer OTHER ==
[2022-11-04 08:57] VITALS: O2SAT 96; BMI 19.8
[2022-11-04 09:15] VITALS: BP 139/71; TEMP 97.9
--- NOTE | 2022-11-04 10:34 | RAD REPORT ---
EXAM DESCRIPTION: US - Abdomen Exam Limited - 11/04/2022 9:03 am CLINICAL HISTORY: Ascites COMPARISON: 10/28/2022. TECHNIQUE: Sonographic grayscale and color flow images of the abdomen were obtained. FINDINGS: Limited evaluation of the abdomen in both flanks was obtained to evaluate for presence of ascites. Mild amount of free ascites is present, not warranting paracentesis at this time. IMPRESSION: Mild volume of ascites, not warranting therapeutic paracentesis at this time.
== END 2022-11-04 09:15 | disposition home or self-care (01) ==
LOC: DS 08:17
PROVIDERS: ATTEND Family Medicine
DX: K70.31 Alcoholic cirrhosis of liver with ascites (principal); B17.10 Acute hepatitis C without hepatic coma; Z53.8 Procedure and treatment not carried out for other reasons
CPT/HCPCS: 76705

== ENCOUNTER 2022-11-24 07:25 | Day surgery (SDC) | payer OTHER ==
[2022-11-24 08:47] LABS: MPV 8.6 fL (7.6-11.3); Platelets 182 thou/uL (152-406)
[2022-11-24 08:52] LABS: Protime INR 1.03
--- NOTE | 2022-11-24 09:58 | RAD REPORT ---
EXAM DESCRIPTION: US - Paracentesis Proc Guidance - 11/24/2022 9:38 am CLINICAL HISTORY: ASCITES Ascites COMPARISON: Paracentesis Proc Guidance dated 11/11/2022 FINDINGS: Informed consent was obtained and time-out was performed. Patient's abdomen was prepped and draped in the usual sterile fashion. 1% lidocaine was used for loca l anesthetic purposes. A small skin incision was made. A paracentesis catheter was guided into the peroneal cavity under son ographic guidance. A small amount of fluid was sent for requested lab studies. A large volume paracentesis was performed yielding 4 liters. The patient tolerated the procedure well. Patient was administered IV albumin per protocol following the procedure. IMPRESSION: Successful ultrasound-guided paracentesis.
[2022-11-24] MEDS ORDERED: ALBUMIN HUMAN 25% 300 ML IV ONE (10:00)
[2022-11-24 11:31] LABS: Body Fluid WBC 148 /mm^3
[2022-11-24 11:50] LABS: Appearance CLEAR (CLEAR); Body Fluid Source PERITONEAL; Color of fluid Yellow (COLORLESS)
[2022-11-24 12:19] VITALS: TEMP 98.2; BMI 17.7
[2022-11-24 12:25] VITALS: BP 130/73; O2SAT 91
== END 2022-11-24 10:54 | disposition home or self-care (01) ==
LOC: DS 07:25
PROVIDERS: ATTEND Family Medicine
DX: K70.31 Alcoholic cirrhosis of liver with ascites (principal); B17.10 Acute hepatitis C without hepatic coma
CPT/HCPCS: 87070; 36415; 82150; 89050; 85049; 84157; 85610; 85730; 82042; 96365; 49083; P9047

== ENCOUNTER 2022-12-05 07:33 | Day surgery (SDC) | payer OTHER ==
[2022-12-05] MEDS ORDERED: ALBUMIN HUMAN 25% 300 ML IV ONE (10:29)
[2022-12-05 10:35] VITALS: BMI 16.7
[2022-12-05 11:05] VITALS: O2SAT 93
[2022-12-05 12:04] VITALS: BP 134/76
[2022-12-05 12:18] VITALS: TEMP 98.1
--- NOTE | 2022-12-05 13:11 | RAD REPORT ---
EXAM DESCRIPTION: US - Paracentesis Proc Guidance - 12/05/2022 10:13 am CLINICAL HISTORY: Liver disease with ascites FINDINGS: The risks, benefits and alternatives to the procedure were explained to the patient and in formed consent obtained. The skin and deeper tissues were anesthetized with Lidocaine. Under sonographic guidance an 8 [place] catheter was placed into the right lower quadrant. 3.5 liters of yellow fluid removed. Fluid sent to the lab. The patient experienced no immediate complication. IMPRESSION: Paracentesis
[2022-12-05 14:43] LABS: Body Fluid WBC 229 /mm^3
[2022-12-05 20:16] LABS: Appearance CLEAR (CLEAR); Body Fluid Source PERITONEAL; Color of fluid Yellow (COLORLESS)
== END 2022-12-05 11:18 | disposition home or self-care (01) ==
LOC: DS 07:33
PROVIDERS: ATTEND Family Medicine
DX: K70.31 Alcoholic cirrhosis of liver with ascites (principal); B17.10 Acute hepatitis C without hepatic coma
CPT/HCPCS: 87070; 36415; 82150; 89050; 84157; 82042; 96365; 49083; P9047

== ENCOUNTER 2022-12-17 09:35 | Day surgery (SDC) | payer OTHER ==
[2022-12-17 10:32] VITALS: BMI 16.7
--- NOTE | 2022-12-17 11:35 | RAD REPORT ---
EXAM DESCRIPTION: US - Paracentesis Proc Guidance - 12/17/2022 11:25 am CLINICAL HISTORY: ASCITES Ascites COMPARISON: Paracentesis Proc Guidance dated 12/05/2022 FINDINGS: Informed consent was obtained and time-out was performed. Patient's abdomen was prepped and draped in the usual sterile fashion. 1% lidocaine was used for loca l anesthetic purposes. A small skin incision was made. A paracentesis catheter was guided into the peroneal cavity under son ographic guidance. A small amount of fluid was sent for requested lab studies. A large volume paracentesis was performed . The patient tolerated the procedure well. Patient was administered IV albumin per protocol following the procedure. IMPRESSION: Successful ultrasound-guided paracentesis.
[2022-12-17] MEDS ORDERED: ALBUMIN HUMAN 25% 50 ML IV ONE ×2 (11:42→11:45)
[2022-12-17 14:39] VITALS: TEMP 97.8
[2022-12-17 14:42] VITALS: BP 137/66; O2SAT 95
== END 2022-12-17 12:15 | disposition home or self-care (01) ==
LOC: DS 09:35
PROVIDERS: ATTEND Family Medicine
DX: K70.31 Alcoholic cirrhosis of liver with ascites (principal); B17.10 Acute hepatitis C without hepatic coma
CPT/HCPCS: 96365; 49083; P9047 ×2

== ENCOUNTER 2023-01-02 08:32 | Day surgery (SDC) | payer OTHER ==
[2023-01-02 09:09] LABS: MPV 9.3 fL (7.6-11.3); Platelets 173 thou/uL (152-406)
[2023-01-02 09:17] VITALS: O2SAT 95; BMI 20.5
[2023-01-02 09:17] LABS: Protime INR 1.05
[2023-01-02 10:58] VITALS: BP 142/72; TEMP 98.2
--- NOTE | 2023-01-02 12:15 | RAD REPORT ---
EXAM DESCRIPTION: US - Abdomen Exam Limited - 01/02/2023 10:33 am CLINICAL HISTORY: Abdominal pain. FINDINGS: Patient presented for a paracentesis. There is a relatively small amount of ascites present. Since the patient was not uncomfortable it was decided to postpone the procedure and scheduled the Pr ocedure in 2 weeks IMPRESSION: Relatively small amount of abdominal ascites
== END 2023-01-02 10:38 | disposition home or self-care (01) ==
LOC: DS 08:32
PROVIDERS: ATTEND Family Medicine
DX: K70.31 Alcoholic cirrhosis of liver with ascites (principal); B17.10 Acute hepatitis C without hepatic coma; Z53.8 Procedure and treatment not carried out for other reasons
CPT/HCPCS: 36415; 76705; 85049; 85610; 85730

== ENCOUNTER 2023-02-23 08:30 | Day surgery (SDC) | payer OTHER ==
[2023-02-23 09:19] LABS: Protime INR 1.07
[2023-02-23 09:48] VITALS: BP 153/75; TEMP 98.3; O2SAT 97; BMI 18.8
--- NOTE | 2023-02-23 10:28 | RAD REPORT ---
EXAM DESCRIPTION: US - Abdomen Exam Limited - 02/23/2023 10:18 am CLINICAL HISTORY: ASCITES COMPARISON: Abdomen Exam Limited dated 01/02/2023 FINDINGS: Pre-procedure sonography was performed. Only a small volume of ascitic fluid is present. IMPRESSION: Small volume of ascites is present, currently insufficient for drainage.
== END 2023-02-23 10:25 | disposition home or self-care (01) ==
LOC: DS 08:30
PROVIDERS: ATTEND Family Medicine
DX: K70.31 Alcoholic cirrhosis of liver with ascites (principal); B17.10 Acute hepatitis C without hepatic coma; Z53.8 Procedure and treatment not carried out for other reasons
CPT/HCPCS: 36415; 76705; 85610; 85730

== ENCOUNTER 2023-03-04 08:34 | Day surgery (SDC) | payer OTHER ==
[2023-03-04 08:57] LABS: MPV 8.3 fL (7.6-11.3); Platelets 162 thou/uL (152-406)
[2023-03-04 10:41] VITALS: BP 145/71; TEMP 98; O2SAT 98; BMI 18.8
[2023-03-04] MEDS ORDERED: ALBUMIN HUMAN 25% 100 ML IV ONE (12:20)
--- NOTE | 2023-03-04 14:06 | RAD REPORT ---
EXAM DESCRIPTION: US - Paracentesis Proc Guidance - 03/04/2023 11:22 am CLINICAL HISTORY: ASCITES COMPARISON: Paracentesis Proc Guidance dated 01/16/2023 FINDINGS: Informed consent was obtained and time-out was performed. Patient's abdomen was prepped and draped in the usual sterile fashion. 1% lidocaine was used for loca l anesthetic purposes. A small skin incision was made. A paracentesis catheter was guided into the peroneal cavity under son ographic guidance. A small amount of fluid was sent for requested lab studies. A large volume paracentesis was performed . A total of 2 liters were drained. The patient tolerated the procedure well. Patient was administered IV albumin per protocol following the procedure. IMPRESSION: Successful ultrasound-guided paracentesis.
== END 2023-03-04 13:00 | disposition home or self-care (01) ==
LOC: DS 08:34
PROVIDERS: ATTEND Family Medicine
DX: K70.31 Alcoholic cirrhosis of liver with ascites (principal); B17.10 Acute hepatitis C without hepatic coma
CPT/HCPCS: 36415; 85049; 99195; 49083; P9047

== ENCOUNTER 2024-02-19 07:27 | Day surgery (SDC) | payer OTHER ==
[2024-02-16 09:58] LABS: Absolute Basophils 0.1 K/uL (0-0.5); Absolute Eosinophils 0.4 K/uL (0-0.5); Absolute Lymphocytes (CBC) 1.7 K/uL (0.7-4.9); Absolute Monocytes 0.4 K/uL (0.1-1.3); Absolute Neutrophil 4.1 K/uL (1.8-8.0); Basophils % 1.1 % (0-1.3); Eosinophils % 5.7 % (0-4.4); Hematocrit 46.6 % (36.0-45.0); Hemoglobin 15.6 g/dL (12.0-15.0); Lymphocytes % 25.1 % (15.3-44.8); MCH 30.8 pg (27.0-35.0); MCHC 33.4 g/dL (32.0-36.0); MCV 92.1 fL (80-100); MPV 9.1 fL (7.6-11.3); Monocytes % 6.6 % (3.3-12.3); Neutrophils % 61.5 % (41.7-73.7); Platelets 168 thou/uL (152-406); RBC Red Blood Cell Count 5.06 M/uL (3.86-4.86); Red Cell Distribution Width 13.3 % (12.1-15.2)
[2024-02-16 10:10] LABS: Anion Gap 9.8 mEq/L (5.0-15.0); Potassium 3.8 mEq/L (3.5-5.1)
--- NOTE | 2024-02-18 12:10 | EKG ---
Test Date: 2024-02-16 Test Time: 10:25:51 Slip Operator: FLAVIO MEASUREMENT RESULTS: Intervals: Rate: 65 VT: 142 QRSD: 74 QT: 438 QTc: 455 [place]: P: 83 VT: 142 QRS: 76 T: 82 INTERPRETIVE STATEMENTS: Normal sinus rhythm Normal ECG Compared to ECG 10/13/2022 15:18:38 Atrial premature complex(es) no longer present Myocardial infarct finding no longer present Electronically Signed On 02-18-24 12:09:44 COPY DIRECTOR by Phillip Jones
[2024-02-19] MEDS ORDERED: Ringers Lactate 1,000 ML IV ONE (07:46)
[2024-02-19] MEDS ORDERED: ONDANSETRON 4 MG/2 ML VIAL ONE (07:53)
[2024-02-19] MEDS ORDERED: FENTANYL CITR 100 MCG/2 ML ONE (07:53)
[2024-02-19] MEDS ORDERED: propofoL 200 MG/20 ML VIAL IV ONE (07:53)
[2024-02-19] MEDS ORDERED: MIDAZOLAM HCL 2 MG/2 ML INJ ONE (07:53)
[2024-02-19] MEDS ORDERED: LIDOCAINE 1% MPF 5 ML VIAL ONE (07:53)
[2024-02-19] MEDS ORDERED: dexAMETHasone 10 MG/ML VIAL ONE (07:53)
[2024-02-19] MEDS ORDERED: LIDOCAINE HCL/EPINEPHRINE 20 ML MDV ONE (08:33)
[2024-02-19] MEDS ORDERED: EPHEDRINE SULF 50 MG/ML VIAL ONE (10:44)
[2024-02-19] MEDS: EPINEPHRINE 1 MG/ML VIAL ONE (10:47)
--- NOTE | 2024-02-19 11:01 | P.OP ---
[employer] Programmer: NONE,NONE Preoperative diagnosis: Neoplasm uncertain behavior, larynx Postoperative diagnosis: Same Primary procedure: Direct laryngoscopy with telescope and biopsy Anesthesia: General Estimated blood loss: Less than 5 mL Specimen: Left false vocal fold Findings: Exophytic appearing tumor/mass centered on the left false vocal fold extend Operative Technique: Patient was brought to the operating room placed under general anesthesia via oral endotracheal tube. She was mildly difficult to intubate due to her small jaw and small mouth opening but the glide scope worked well for improved visualization. Following intubation, the 1jiajie laryngoscope fitted with telescope was used to perform a direct laryngoscopy. The patient was noted to be essentially endentulous with residual avulsed teeth. There were no visible lesions of the lips, oral mucosa, gingiva, floor of mouth, hard or soft palate. With palpation the base of tongue was smooth and soft. There were no palpable induration of the tonsillar fossa. The posterior pharyngeal wall appeared unremarkable. The vallecular space was unremarkable. The base of tongue had no ulcerations or obvious visible abnormalities. The tip of the laryngoscope was placed on the laryngeal surface of the epiglottis and placed in suspension. There was exophytic tumor noted on the left false vocal fold consistent with preoperative evaluation. The visualized portion of the true vocal fold appeared uninvolved. The tumor appeared to encroach onto the laryngeal surface of the left arytenoid and onto the laryngeal surface of the epiglottis. A cup forcep was used to obtain tissue biopsy from the left false vocal fold and sent for permanent pathology evaluation. Epinephrine soaked pledget was applied to the biopsy site for several minutes to aid in hemostasis. Additional evaluation of the piriform sinuses showed no visible tumor or significant abnormality. The pledget and laryngoscope were removed. There was a 2 mm laceration on the left upper lip and left upper gingiva and direct pressure was held for hemostasis. The procedure was concluded and the patient was returned to care of anesthesia for awakening and extubation in the operating room which proceeded without complication. All pledget and sponge counts were correct at the conclusion of the case. Complications: None Implants: None Fluids & blood products: See anesthesia record Transferred to: Recovery Room Condition: Good
[2024-02-19] MEDS: IBUPROFEN 400 MG TAB ONE (12:10)
[2024-02-19 13:15] VITALS: BP 110/63; TEMP 97.8; O2SAT 97
== END 2024-02-19 12:55 | disposition home or self-care (01) ==
LOC: OR 07:27
PROVIDERS: ATTEND Otolaryngology
PROC: 0CBS8ZX Excision of Larynx, Via Natural or Artificial Opening Endoscopic, Diagnostic (ICD-10-PCS; principal; 2024-02-19 10:20)
DX: D02.0 Carcinoma in situ of larynx (principal)
CPT/HCPCS: 31536; 93005; 85025; 80048; 36415; 88305; J2704; J2003; J2250; J3010; J1100; J0171; J2405; J7120